=== PATIENT | male | born 1965 | race African-American/Black ===

== ENCOUNTER 2023-03-11 06:34 | Outpatient (REF) | payer OTHER, SELFPAY ==
[2023-03-11 06:41] LABS: MANUAL DIFF FLAG NO
[2023-03-11 06:54] LABS: Basophils Percent Auto 0.2 % (0-2); Eosinophils Absolute Auto 0.1 X10*3/uL (0.0-0.4); Eosinophils Percent Auto 1.5 % (0-4); Hematocrit 42.8 % (42.0-52.0); Hemoglobin 14.4 g/dl (14.0-18.0); Imm Gran Abs Auto 0.05 X10*3/uL (0.00-0.03); Imm Gran Pct Auto 0.6 % (0.0-0.4); Lymphocytes Percent Auto 12.6 % (20-40); Mean Corpuscular HGB Conc 33.6 g/dl (31.0-36.0); Mean Corpuscular Hemoglobin 30.3 pg (27.0-33.0); Mean Corpuscular Volume 89.9 fL (80.0-98.0); Mean Platelet Volume 10.4 fL (9.4-12.4); Monocytes Percent Auto 12.3 % (2-11); Neutrophils Absolute Auto 5.9 x10*3/uL (2.0-8.3); Neutrophils Percent Auto 72.8 % (45-73); Platelet Count 186 X10*3/uL (160-400); Red Blood Count 4.76 X10*6/uL (4.60-5.80); Red Cell Distribution Width 12.6 % (11.0-16.0); White Blood Count 8.1 X10*3/uL (4.8-10.8)
[2023-03-11 07:14] LABS: Alanine Aminotransferase 24 U/L (0-40); Albumin Level 3.9 g/dL (3.5-5.0); Alkaline Phosphatase 63 U/L (39-117); Anion Gap 12 (12-20); Aspartate Amino Transferase 23 U/L (5-37); Bilirubin Total 0.7 mg/dL (0.0-1.0); Blood Urea Nitrogen 7 mg/dL (9-16); Calcium 8.9 mg/dL (8.4-10.2); Carbon Dioxide 26 mmol/L (22-29); Chloride 104 mmol/L (96-108); Estimated Glomerular Filt Rate > 60; Glucose Random 90 mg/dL (60-115); Potassium 3.2 mmol/L (3.3-5.1); Sodium 139 mmol/L (135-145); Total Protein 7.1 g/dL (6.5-8.0)
[2023-03-11 20:17] LABS: Amphetamine Screen Urine Not Detected (Not Detect); Barbiturates, Urine Not Detected (Not Detect); Benzodiazepines Screen Urine Not Detected (Not Detect); Cannabinoid Screen Urine POSITIVE (Not Detect); Cocaine Screen Urine Not Detected (Not Detect); Fentanyl, urine Not Detected (Not Detect); Opiate Screen Urine Not Detected (Not Detect); Phencyclidine Screen Urine Not Detected (Not Detect)
== END 2023-03-11 06:35 | disposition home or self-care (01) ==
LOC: HO.MMNH1L 06:34
PROVIDERS: Visit Provider Family Medicine
DX: Z13.89 Encounter for screening for other disorder (principal); I10 Essential (primary) hypertension; K21.9 Gastro-esophageal reflux disease without esophagitis; E66.9 Obesity, unspecified
CPT/HCPCS: 36415; 80053; 80307; 85025

== ENCOUNTER 2023-03-15 06:26 | Outpatient (REF) | payer OTHER, SELFPAY ==
[2023-03-15 06:05] LABS: MANUAL DIFF FLAG NO
[2023-03-15 06:41] LABS: Basophils Percent Auto 0.3 % (0-2); Eosinophils Absolute Auto 0.1 X10*3/uL (0.0-0.4); Eosinophils Percent Auto 1.7 % (0-4); Hematocrit 41.6 % (42.0-52.0); Hemoglobin 14.1 g/dl (14.0-18.0); Imm Gran Abs Auto 0.02 X10*3/uL (0.00-0.03); Imm Gran Pct Auto 0.3 % (0.0-0.4); Lymphocytes Absolute Auto 1.3 X10*3/uL (1.2-4.9); Lymphocytes Percent Auto 19.6 % (20-40); Mean Corpuscular HGB Conc 33.9 g/dl (31.0-36.0); Mean Corpuscular Hemoglobin 31.2 pg (27.0-33.0); Mean Platelet Volume 10.1 fL (9.4-12.4); Monocytes Absolute Auto 0.8 X10*3/uL (0.1-1.2); Monocytes Percent Auto 12.6 % (2-11); Neutrophils Absolute Auto 4.2 x10*3/uL (2.0-8.3); Neutrophils Percent Auto 65.5 % (45-73); Platelet Count 189 X10*3/uL (160-400); Red Blood Count 4.52 X10*6/uL (4.60-5.80); Red Cell Distribution Width 12.7 % (11.0-16.0); White Blood Count 6.4 X10*3/uL (4.8-10.8)
[2023-03-15 06:48] LABS: Vancomycin Trough 9.6 mcg/mL (10.0-20.0)
[2023-03-15 07:02] LABS: Anion Gap 14 (12-20); Blood Urea Nitrogen 8 mg/dL (9-16); Calcium 8.7 mg/dL (8.4-10.2); Carbon Dioxide 27 mmol/L (22-29); Chloride 104 mmol/L (96-108); Estimated Glomerular Filt Rate > 60; Glucose Random 97 mg/dL (60-115); Potassium 3.4 mmol/L (3.3-5.1); Sodium 142 mmol/L (135-145)
== END 2023-03-15 06:27 | disposition home or self-care (01) ==
LOC: HO.MMNH1L 06:26
PROVIDERS: Visit Provider Family Medicine
DX: I10 Essential (primary) hypertension (principal); K21.9 Gastro-esophageal reflux disease without esophagitis; E66.9 Obesity, unspecified
CPT/HCPCS: 36415; 80048; 80202; 85025

== ENCOUNTER 2023-03-16 06:48 | Outpatient (REF) | payer OTHER, SELFPAY ==
[2023-03-16 19:57] LABS: Vancomycin Trough 8.2 mcg/mL (10.0-20.0)
== END 2023-03-16 06:49 | disposition home or self-care (01) ==
LOC: HO.MMNH1L 06:48
PROVIDERS: Visit Provider Family Medicine
DX: M86.9 Osteomyelitis, unspecified (principal); Z79.899 Other long term (current) drug therapy
CPT/HCPCS: 36415; 80202

== ENCOUNTER 2023-03-19 05:44 | Outpatient (REF) | payer OTHER, SELFPAY ==
[2023-03-19 06:20] LABS: Vancomycin Trough 8.1 mcg/mL (10.0-20.0)
== END 2023-03-19 05:45 | disposition home or self-care (01) ==
LOC: HO.MMNH1L 05:44
PROVIDERS: Visit Provider Family Medicine
DX: M86.9 Osteomyelitis, unspecified (principal); Z79.899 Other long term (current) drug therapy
CPT/HCPCS: 36415; 80202

== ENCOUNTER 2023-03-21 05:01 | Outpatient (REF) | payer OTHER, SELFPAY ==
[2023-03-21 05:34] LABS: Vancomycin Trough 8.4 mcg/mL (10.0-20.0)
== END 2023-03-21 05:02 | disposition home or self-care (01) ==
LOC: HO.MMNH1L 05:01
PROVIDERS: Visit Provider Family Medicine
DX: M86.9 Osteomyelitis, unspecified (principal); Z79.899 Other long term (current) drug therapy
CPT/HCPCS: 36415; 80202

== ENCOUNTER 2023-03-22 06:47 | Outpatient (REF) | payer OTHER, SELFPAY ==
[2023-03-22 06:08] LABS: MANUAL DIFF FLAG NO
[2023-03-22 07:27] LABS: Anion Gap 13 (12-20); Blood Urea Nitrogen 10 mg/dL (9-16); Calcium 8.5 mg/dL (8.4-10.2); Carbon Dioxide 28 mmol/L (22-29); Chloride 104 mmol/L (96-108); Estimated Glomerular Filt Rate > 60; Glucose Random 161 mg/dL (60-115); Potassium 3.5 mmol/L (3.3-5.1); Sodium 141 mmol/L (135-145)
[2023-03-22 07:28] LABS: Basophils Percent Auto 0.6 % (0-2); Eosinophils Absolute Auto 0.2 X10*3/uL (0.0-0.4); Eosinophils Percent Auto 3.5 % (0-4); Hematocrit 41.1 % (42.0-52.0); Hemoglobin 13.7 g/dl (14.0-18.0); Imm Gran Abs Auto 0.02 X10*3/uL (0.00-0.03); Imm Gran Pct Auto 0.4 % (0.0-0.4); Lymphocytes Absolute Auto 1.4 X10*3/uL (1.2-4.9); Lymphocytes Percent Auto 25.3 % (20-40); Mean Corpuscular HGB Conc 33.3 g/dl (31.0-36.0); Mean Corpuscular Hemoglobin 30.3 pg (27.0-33.0); Mean Corpuscular Volume 90.9 fL (80.0-98.0); Mean Platelet Volume 10.6 fL (9.4-12.4); Monocytes Absolute Auto 0.9 X10*3/uL (0.1-1.2); Monocytes Percent Auto 17.4 % (2-11); Neutrophils Absolute Auto 2.9 x10*3/uL (2.0-8.3); Neutrophils Percent Auto 52.8 % (45-73); Platelet Count 197 X10*3/uL (160-400); Red Blood Count 4.52 X10*6/uL (4.60-5.80); Red Cell Distribution Width 12.7 % (11.0-16.0); White Blood Count 5.4 X10*3/uL (4.8-10.8)
== END 2023-03-22 06:48 | disposition home or self-care (01) ==
LOC: HO.MMNH1L 06:47
PROVIDERS: Visit Provider Family Medicine
DX: I10 Essential (primary) hypertension (principal); K21.9 Gastro-esophageal reflux disease without esophagitis; E66.9 Obesity, unspecified
CPT/HCPCS: 36415; 80048; 85025

== ENCOUNTER 2023-03-23 06:43 | Outpatient (REF) | payer OTHER, SELFPAY ==
[2023-03-23 07:11] LABS: Vancomycin Trough 9.1 mcg/mL (10.0-20.0)
== END 2023-03-23 06:44 | disposition home or self-care (01) ==
LOC: HO.MMNH1L 06:43
PROVIDERS: Visit Provider Family Medicine
DX: M62.59 Muscle wasting and atrophy, not elsewhere classified, multiple sites (principal); M86.9 Osteomyelitis, unspecified; Z79.899 Other long term (current) drug therapy
CPT/HCPCS: 36415; 80202

== ENCOUNTER 2023-03-25 05:45 | Outpatient (REF) | payer OTHER, SELFPAY ==
[2023-03-25 06:08] LABS: Vancomycin Trough 4.9 mcg/mL (10.0-20.0)
== END 2023-03-25 05:46 | disposition home or self-care (01) ==
LOC: HO.MMNH1L 05:45
PROVIDERS: Visit Provider Family Medicine
DX: M86.9 Osteomyelitis, unspecified (principal); Z79.899 Other long term (current) drug therapy
CPT/HCPCS: 36415; 80202

== ENCOUNTER 2023-03-29 06:01 | Outpatient (REF) | payer OTHER, SELFPAY ==
[2023-03-29 05:45] LABS: MANUAL DIFF FLAG NO
[2023-03-29 06:47] LABS: Basophils Percent Auto 0.5 % (0-2); Eosinophils Absolute Auto 0.2 X10*3/uL (0.0-0.4); Eosinophils Percent Auto 2.7 % (0-4); Hematocrit 41.5 % (42.0-52.0); Hemoglobin 13.9 g/dl (14.0-18.0); Imm Gran Abs Auto 0.03 X10*3/uL (0.00-0.03); Imm Gran Pct Auto 0.5 % (0.0-0.4); Lymphocytes Absolute Auto 1.6 X10*3/uL (1.2-4.9); Lymphocytes Percent Auto 26.8 % (20-40); Mean Corpuscular HGB Conc 33.5 g/dl (31.0-36.0); Mean Corpuscular Hemoglobin 30.1 pg (27.0-33.0); Mean Corpuscular Volume 89.8 fL (80.0-98.0); Mean Platelet Volume 10.3 fL (9.4-12.4); Monocytes Absolute Auto 0.8 X10*3/uL (0.1-1.2); Neutrophils Absolute Auto 3.2 x10*3/uL (2.0-8.3); Neutrophils Percent Auto 55.5 % (45-73); Platelet Count 250 X10*3/uL (160-400); Red Blood Count 4.62 X10*6/uL (4.60-5.80); Red Cell Distribution Width 12.8 % (11.0-16.0); White Blood Count 5.9 X10*3/uL (4.8-10.8)
[2023-03-29 07:11] LABS: Vancomycin Trough 9.7 mcg/mL (10.0-20.0)
[2023-03-29 07:13] LABS: Anion Gap 15 (12-20); Blood Urea Nitrogen 9 mg/dL (9-16); Calcium 8.9 mg/dL (8.4-10.2); Carbon Dioxide 26 mmol/L (22-29); Chloride 101 mmol/L (96-108); Estimated Glomerular Filt Rate > 60; Glucose Random 99 mg/dL (60-115); Sodium 139 mmol/L (135-145)
== END 2023-03-29 06:02 | disposition home or self-care (01) ==
LOC: HO.MMNH1L 06:01
PROVIDERS: Visit Provider Family Medicine
DX: I10 Essential (primary) hypertension (principal); K21.9 Gastro-esophageal reflux disease without esophagitis; E66.9 Obesity, unspecified; Z79.899 Other long term (current) drug therapy
CPT/HCPCS: 36415; 80048; 80202; 85025

== ENCOUNTER 2023-03-31 05:23 | Outpatient (REF) | payer OTHER, SELFPAY ==
[2023-03-31 11:06] LABS: Appearance Urine Clear; Color Urine Yellow; Glucose Urine UA Negative (Negative); Leukocyte Esterase Urine Negative (Negative); Nitrite Urine Negative (Negative); PH 5.5 (5.0-9.0); Specific Gravity - Urine 1.025 (1.005-1.025); UMIC TRIGGER UACC YES; Urine Blood Trace (Negative); Urine Ketones Negative (Negative); Urine Protein Negative (Neg-Trace)
[2023-03-31 11:10] LABS: Bacteria Urine None Seen (None Seen); Hyaline Casts Urine 0-2 /LPF (0-2); RBC Urine 0-2 /HPF (0-2); Squamous Epithelial Cell Urine 0-2 /HPF (0-2); WBC Urine 0-5 /HPF (0-5)
[2023-03-31 11:12] LABS: Amphetamine Screen Urine Not Detected (Not Detect); Barbiturates, Urine Not Detected (Not Detect); Benzodiazepines Screen Urine Not Detected (Not Detect); Cannabinoid Screen Urine POSITIVE (Not Detect); Cocaine Screen Urine Not Detected (Not Detect); Fentanyl, urine Not Detected (Not Detect); Opiate Screen Urine Not Detected (Not Detect); Phencyclidine Screen Urine Not Detected (Not Detect)
== END 2023-03-31 05:24 | disposition home or self-care (01) ==
LOC: HO.MMNH1L 05:23
PROVIDERS: Visit Provider Family Medicine
DX: M86.9 Osteomyelitis, unspecified (principal); G89.4 Chronic pain syndrome; M62.59 Muscle wasting and atrophy, not elsewhere classified, multiple sites
CPT/HCPCS: 36415; 80307; 81001; 81003

== ENCOUNTER 2023-04-02 05:38 | Outpatient (REF) | payer OTHER, SELFPAY ==
[2023-04-02 06:07] LABS: Vancomycin Trough 7.6 mcg/mL (10.0-20.0)
== END 2023-04-02 05:39 | disposition home or self-care (01) ==
LOC: HO.MMNH1L 05:38
PROVIDERS: Visit Provider Family Medicine
DX: M86.9 Osteomyelitis, unspecified (principal); Z79.899 Other long term (current) drug therapy
CPT/HCPCS: 36415; 80202

== ENCOUNTER 2023-04-05 06:27 | Outpatient (REF) | payer OTHER, SELFPAY ==
[2023-04-05 05:53] LABS: MANUAL DIFF FLAG NO
[2023-04-05 06:44] LABS: Basophils Percent Auto 0.3 % (0-2); Eosinophils Absolute Auto 0.2 X10*3/uL (0.0-0.4); Eosinophils Percent Auto 2.5 % (0-4); Hematocrit 40.8 % (42.0-52.0); Hemoglobin 13.9 g/dl (14.0-18.0); Imm Gran Abs Auto 0.04 X10*3/uL (0.00-0.03); Imm Gran Pct Auto 0.6 % (0.0-0.4); Lymphocytes Absolute Auto 1.4 X10*3/uL (1.2-4.9); Lymphocytes Percent Auto 21.9 % (20-40); Mean Corpuscular HGB Conc 34.1 g/dl (31.0-36.0); Mean Corpuscular Hemoglobin 30.1 pg (27.0-33.0); Mean Corpuscular Volume 88.3 fL (80.0-98.0); Mean Platelet Volume 10.3 fL (9.4-12.4); Monocytes Percent Auto 15.7 % (2-11); Neutrophils Absolute Auto 3.7 x10*3/uL (2.0-8.3); Platelet Count 220 X10*3/uL (160-400); Red Blood Count 4.62 X10*6/uL (4.60-5.80); Red Cell Distribution Width 12.7 % (11.0-16.0); White Blood Count 6.3 X10*3/uL (4.8-10.8)
[2023-04-05 07:06] LABS: Anion Gap 12 (12-20); Blood Urea Nitrogen 11 mg/dL (9-16); Calcium 8.7 mg/dL (8.4-10.2); Carbon Dioxide 28 mmol/L (22-29); Chloride 103 mmol/L (96-108); Estimated Glomerular Filt Rate > 60; Glucose Random 117 mg/dL (60-115); Potassium 3.2 mmol/L (3.3-5.1); Sodium 140 mmol/L (135-145)
== END 2023-04-05 06:28 | disposition home or self-care (01) ==
LOC: HO.MMNH1L 06:27
PROVIDERS: Visit Provider Family Medicine
DX: I10 Essential (primary) hypertension (principal); K21.9 Gastro-esophageal reflux disease without esophagitis; E66.9 Obesity, unspecified; Z79.899 Other long term (current) drug therapy
CPT/HCPCS: 36415; 80048; 80202; 85025

== ENCOUNTER 2023-04-12 06:19 | Outpatient (REF) | payer OTHER, SELFPAY ==
[2023-04-12 05:54] LABS: MANUAL DIFF FLAG NO
[2023-04-12 06:10] LABS: Basophils Percent Auto 0.3 % (0-2); Eosinophils Absolute Auto 0.1 X10*3/uL (0.0-0.4); Eosinophils Percent Auto 2.3 % (0-4); Hematocrit 39.7 % (42.0-52.0); Hemoglobin 13.6 g/dl (14.0-18.0); Imm Gran Abs Auto 0.02 X10*3/uL (0.00-0.03); Imm Gran Pct Auto 0.3 % (0.0-0.4); Lymphocytes Absolute Auto 1.4 X10*3/uL (1.2-4.9); Lymphocytes Percent Auto 23.7 % (20-40); Mean Corpuscular HGB Conc 34.3 g/dl (31.0-36.0); Mean Corpuscular Hemoglobin 30.4 pg (27.0-33.0); Mean Corpuscular Volume 88.8 fL (80.0-98.0); Mean Platelet Volume 10.6 fL (9.4-12.4); Monocytes Absolute Auto 0.9 X10*3/uL (0.1-1.2); Monocytes Percent Auto 15.5 % (2-11); Neutrophils Absolute Auto 3.3 x10*3/uL (2.0-8.3); Neutrophils Percent Auto 57.9 % (45-73); Platelet Count 184 X10*3/uL (160-400); Red Blood Count 4.47 X10*6/uL (4.60-5.80); Red Cell Distribution Width 12.7 % (11.0-16.0); White Blood Count 5.7 X10*3/uL (4.8-10.8)
[2023-04-12 06:41] LABS: Anion Gap 10 (12-20); Blood Urea Nitrogen 9 mg/dL (9-16); Carbon Dioxide 31 mmol/L (22-29); Chloride 103 mmol/L (96-108); Estimated Glomerular Filt Rate > 60; Glucose Random 110 mg/dL (60-115); Potassium 3.4 mmol/L (3.3-5.1); Sodium 141 mmol/L (135-145)
[2023-04-12 06:45] LABS: Vancomycin Trough 8.5 mcg/mL (10.0-20.0)
== END 2023-04-12 06:20 | disposition home or self-care (01) ==
LOC: HO.MMNH1L 06:19
PROVIDERS: Visit Provider Family Medicine
DX: I10 Essential (primary) hypertension (principal); K21.9 Gastro-esophageal reflux disease without esophagitis; E66.9 Obesity, unspecified; Z79.899 Other long term (current) drug therapy
CPT/HCPCS: 36415; 80048; 80202; 85025

== ENCOUNTER 2023-04-13 05:56 | Outpatient (REF) | payer OTHER, SELFPAY ==
[2023-04-13 06:36] LABS: Alanine Aminotransferase 20 U/L (0-40); Albumin Level 4.2 g/dL (3.5-5.0); Alkaline Phosphatase 80 U/L (39-117); Anion Gap 13 (12-20); Aspartate Amino Transferase 18 U/L (5-37); Bilirubin Total 0.8 mg/dL (0.0-1.0); Blood Urea Nitrogen 9 mg/dL (9-16); Calcium 9.2 mg/dL (8.4-10.2); Carbon Dioxide 28 mmol/L (22-29); Chloride 104 mmol/L (96-108); Estimated Glomerular Filt Rate > 60; Glucose Random 101 mg/dL (60-115); Potassium 3.3 mmol/L (3.3-5.1); Sodium 142 mmol/L (135-145); Total Protein 7.6 g/dL (6.5-8.0)
[2023-04-13 07:22] LABS: Erythrocyte Sedimentation Rate 13 MM/HR (0-15)
== END 2023-04-13 05:57 | disposition home or self-care (01) ==
LOC: HO.MMNH1L 05:56
PROVIDERS: Visit Provider Family Medicine
DX: K21.9 Gastro-esophageal reflux disease without esophagitis (principal); G89.4 Chronic pain syndrome; M62.59 Muscle wasting and atrophy, not elsewhere classified, multiple sites
CPT/HCPCS: 36415; 80053; 85652; 86140

== ENCOUNTER 2023-09-17 12:59 | Emergency (ER) | payer OTHER, SELFPAY ==
--- NOTE | 2023-09-17 | ECG_ITS ---
Test Reason : CHEST PAIN Blood Pressure : / mmHG Vent. Rate : 091 BPM Atrial Rate : 091 BPM P-R Int : 166 ms QRS Dur : 072 ms QT Int : 368 ms P-R-T Axes : 040 -27 -03 degrees QTc Int : 452 ms Normal sinus rhythm Normal ECG When compared with ECG of 01-APR-2017 01:55, T wave inversion no longer evident in Lateral leads Referred By: Generic ED Physician Electronically Signed By:LAZ SHAFFER MD
--- NOTE | ~2023-09-17 | CT_ITS ---
EXAMINATION: CT HEAD WITHOUT CONTRAST CLINICAL INFORMATION: Headache COMPARISON: None available. TECHNIQUE: Contiguous axial imaging was performed from the skull base to vertex without intravenous administration of contrast. This CT examination was performed using dose optimization techniques as appropriate, variously including the following: *Automated exposure control *Adjustment of mA and/or kV according to patient size (this includes techniques or standardized protocols for targeted exams where dose is matched to indication/reason for exam; i.e. extremities or head) *Use of iterative reconstruction technique DLP: 1208.4 mGy-cm FINDINGS: The ventricles and sulci are normal in size and configuration. No acute hemorrhage, mass effect or shift is evident. Osullivan-white differentiation is maintained. In the posterior fossa, the brainstem, cerebellum and fourth ventricle image normally. The orbits and calvarium are intact. The paranasal sinuses and mastoid air cells are well pneumatized and clear. CT/CT head/brain wo IV con IMPRESSION: 1. Unremarkable noncontrast brain CT. No acute hemorrhage, mass effect or shift.
--- NOTE | ~2023-09-17 | CT_ITS ---
EXAMINATION: CT CERVICAL SPINE WITHOUT CONTRAST CLINICAL INFORMATION: Neck pain, trauma. COMPARISON: None available. TECHNIQUE: Multiple helical unenhanced images were acquired through the cervical spine. Multiplanar computer reformatted images were acquired from the dataset in the sagittal and coronal plane. This CT examination was performed using dose optimization techniques as appropriate, variously including the following: *Automated exposure control *Adjustment of mA and/or kV according to patient size (this includes techniques or standardized protocols for targeted exams where dose is matched to indication/reason for exam; i.e. extremities or head) *Use of iterative reconstruction technique DLP: 461.6 mGy-cm FINDINGS: CT examination of the cervical spine shows no prevertebral soft tissue swelling. Vertebral body height and alignment are maintained. No acute fracture or subluxation is evident. The odontoid process, cervicothoracic and cervical medullary junctions are normal. There are no bone lesions. Mild degenerative disc disease is evident at C5-C6 and C6-C7. Incidental note is made of bilateral, left greater than right stylohyoid ligament calcification, which can be a cause of neck pain or dysphagia. CT/CT cervical spine wo IV con IMPRESSION: 1. No acute cervical spine fracture or subluxation. Fleischner guidelines were followed.
--- NOTE | 2023-09-17 13:25 | ED.GENADULT ---
HPI - General Adult General Chief complaint: Chest Pain Stated complaint: CP and body aches Time Seen by Provider: 09/17/23 15:33 Source: patient Mode of arrival: ambulatory Limitations: no limitations History of Present Illness ED Provider: Dr. Reed Roe HPI narrative: 58-year-old male with a history of hypertension C diff colitis, diverticulitis, spinal infection 04/28/2023 completed 7 week course of antibiotics who presents emergency department for evaluation headache, neck pain, lower back pain, chest pain, palpitations, blurred vision and facial numbness. Patient states that in April of 2023 he had a infection his neck and lower back and was treated at [facility]. He does not know the etiology of this infection but states that he was at a nursing facility for 7 weeks sick bleed antibiotics. He states that since getting out of the rehab he has been having pain in his head, neck and lower back. He describes as a constant, sharp pain which is worse with movement and he now has to use a walker to support himself when he walks. He denied any numbness, weakness, loss of bowel or bladder control. He states that he was not had any fever or chills. Patient states that 2 weeks ago he saw his PCP and was told that he might have an infection at 1 of the IV sites and was supposed to get antibiotics and a muscle relaxant for his back but he never got these prescriptions. He states that the area of redness in his right arm has resolved without treatment. Patient states that he has been experiencing intermittent chest pain over the last 1-2 weeks. States he gets the chest pain daily. He states the pain has been constant for 2 days he describes it as a pressure-like sensation and he points to his anterior chest. He states that he will have intermittent palpitations which will last minutes. The pain does not radiate to his neck, jaw, arms or back. States that over the past week he has had constant nausea with vomiting. He has not been able to eat or drink for the last 2 days. He states he was having bloody diarrhea but this resolved 2 days prior. He states he did have a history of C diff colitis and is concerned that his C diff colitis is come back. Patient states he drinks 6-10 beers per day. He states that he snorts cocaine and last used yesterday. Related Data Previous Rx's ?Medication ?Instructions ?Recorded acetaminophen 500 mg tablet 1,000 mg (2 x 500 mg) PO Q6H PRN 09/17/23 (Tylenol Extra Strength) fever or pain #20 tabs ibuprofen 400 mg tablet 400 mg PO TID PRN fever or pain 09/17/23 #30 tabs morphine 15 mg immediate release 15 mg PO Q4-6H PRN pain #10 tabs 09/17/23 tablet Allergies Allergy/AdvReac Type Severity Reaction Status Date / Time No Known Allergies Allergy Verified 09/17/23 13:40 Review of Systems Review of Systems: Yes all other systems are reviewed and are negative [facility] Social History Social History (System 09/17/23 @ 13:34 by Keila Portillo) Alcohol intake: current Alcohol intake frequency: 3 or more drinks per day Alcohol type: beer Smoked in Last 30 Days: No Use of substances other than those prescribed or required for medical reasons: Yes Substance Use Type: Crack/Cocaine and Marijuana Substance Use Frequency: Chronic Longstanding Advance Directives: No Advance Directives Information Provided: No Do you have a plan to hurt others: No Plan Physical Exam ED Vital Signs: Vital Signs - 24 hr 09/17/23 13:39 09/17/23 16:22 09/17/23 18:22 Temperature 98.6 F 98.4 F 98.4 F Pulse Rate 94 85 80 Respiratory Rate 18 12 17 Blood Pressure 142/84 H 122/83 135/87 Pulse Oximetry 98 95 94 Oxygen Delivery Method Room Air Room Air Room Air BMI result Body Mass Index 39.9 Vital signs revealed an elevated blood pressure otherwise unremarkable Exam: General: Awake, alert in no distress Head: Normocephalic, atraumatic EENT: PERRL, Lids normal, sclera normal, conjunctiva normal, nose normal , ears normal, throat without erythema or exudates Neck: Supple, no adenopathy Lung: breath sounds symmetric, no wheezing, rales or rhonchi Chest: symmetric movement, nontender Heart: regular rate and rhythm, normal S1, S2 no murmurs or rubs Abdomen: soft, non-tender, nondistended, normal bowel sounds Back: no vertebral tenderness, no CVAT Extremities: no deformities, moves all extremities symmetrically Neuro: Awake, alert, oriented, normal speech, cranial nerves intact, moves all extremities symmetrically Psych: Pleasant, cooperative Course Course Course Narrative: This is an RME: Additional HPI, ROS, PE not included below will be deferred to primary provider. RME assessment and note performed by: Ana Gonzalez PA-C This is a [id number]-male who presenting to the ER with a complaint of diarrhea, decreased appetite, body aches, chest pain, left arm pain, and headaches 2 weeks, worsening everyday. Reporting that in Jan 2023 he was admitted to [facility] for septic arthritis. He was sent to a rehab and was discharged in May. He states that about 1-2 weeks ago he was sent back to [facility] as he was afraid his septic arthritis in his neck was returning. He was discharged home, he is not on antibiotics. He states that he has been incontinent of urine for the last few months has been worse. Also having difficulty with ambulation. I was called to patient's assistance in the waiting room as patient was found on the ground. He was responsive. When asked about what caused him to fall, he states that he has had pain in his legs and diffusely throughout his body. When asked about what caused him to fall, he states that he is unsure. Plan: Labs, EKG, cxr Medications Administered Discontinued Medications Generic Name Dose Route Start Last Admin Trade Name Freq PRN Reason Stop Dose Admin Sodium Chloride 1,000 mls @ 999 mls/hr 09/17/23 16:00 09/17/23 19:45 Ns IV 09/17/23 17:00 Infused .Q1H1M STA Infusion Ketorolac Tromethamine 15 mg 09/17/23 16:00 09/17/23 16:45 Ketorolac Tromethamine 15 Mg/Ml Vial IVPUSH 09/17/23 16:01 15 mg ONCE STA Administration Ondansetron HCl 4 mg 09/17/23 16:00 09/17/23 16:45 Ondansetron Hcl 4 Mg/2 Ml Vial IVPUSH 09/17/23 16:01 4 mg ONCE ONE Administration Medical Decision Making Medical Decision Making [facility] Narrative: 58-year-old male with a history of hypertension C diff colitis, diverticulitis, spinal infection 04/28/2023 completed 7 week course of antibiotics who presents emergency department for evaluation headache, neck pain, lower back pain, chest pain, palpitations, blurred vision and facial numbness. Patient's physical examination was unremarkable Differential diagnosis: ?Includes but is not limited to myocardial infarction, myocardial ischemia, musculoskeletal pain, costochondritis, stroke, closed head injury, intracranial bleed, paraspinal infection Following evaluation was ordered: CBC, BMP, LFTs, troponin, lipase, urine drug screen, PT/INR, PTT, CRP, CT scan of the head and cervical spine without IV contrast, EKG Patient was initially treated with the following: Morphine 15 mg orally, ibuprofen 400 mg orally Course: My interpretation patient's laboratory evaluation is as follows: White blood cell count was normal. Platelet count low 154,000. AST and ALT elevated 64 and 57. High sensitive troponin was elevated 83.5 per hour troponin was 75 which is reassuring suggested the patient did not have myocardial injury is the cause of his chest pain. Patient's CK was high at 655 and this is probably related to his cocaine use. Patient's CRP was normal at 0.11 which is reassuring as well. Patient did have a fall in the waiting room and CT scan of the head and cervical spine was unremarkable. At this time I do not have a clear etiology for the patient's pain, he was prescribed ibuprofen and Tylenol and for pain not relieved by these medications he was prescribed morphine 15 mg every 6 hours as needed for pain. He was given printed and verbal instructions and discharged home. Admission/Observation Consideration of admission/observation: Escalation of care including admission/observation considered Lab Data MDM Lab Attestation statement: I reviewed the patient's lab results. 09/17/23 15:00 09/17/23 15:00 Labs: Lab Results 09/17/23 09/17/23 09/17/23 Range/Units 15:00 16:14 16:58 WBC 5.3 (4.8-10.8) X10*3/uL RBC 5.03 (4.60-5.80) X10*6/uL Hgb 15.6 (14.0-18.0) g/dl Hct 44.5 (42.0-52.0) % MCV 88.5 (80.0-98.0) fL MCH 31.0 (27.0-33.0) pg MCHC 35.1 (31.0-36.0) g/dl RDW 13.4 (11.0-16.0) % Plt Count 154 L (160-400) X10*3/uL MPV 9.6 (9.4-12.4) fL Immature Gran % (Auto) 0.4 (0.0-0.4) % Neut % (Auto) 60.9 (45-73) % Lymph % (Auto) 25.0 (20-40) % [place] % (Auto) 12.7 H (2-11) % Eos % (Auto) 0.6 (0-4) % Baso % (Auto) 0.4 (0-2) % Lymph # (Auto) 1.3 (1.2-4.9) X10*3/uL [place] # (Auto) 0.7 (0.1-1.2) X10*3/uL Eos # (Auto) 0.0 (0.0-0.4) X10*3/uL Baso # (Auto) 0.0 (0.0-0.2) X10*3/uL Abs Immat Gran (auto) 0.02 (0.00-0.03) X10*3/uL Absolute Neuts (auto) 3.2 (2.0-8.3) x10*3/uL Absolute Nucleated RBC 0.000 (0.0-0.012) X10*3/uL Nucleated RBC % (auto) 0.0 (0.0-0.2) /100WBC PT 12.4 (11.1-13.3) SEC INR 1.0 (0.9-1.1) Sodium 143 (135-145) mmol/L Potassium 3.4 (3.3-5.1) mmol/L Chloride 104 (96-108) mmol/L Carbon Dioxide 26 (22-29) mmol/L Anion Gap 16 (12-20) BUN 6 L (9-16) mg/dL Creatinine 0.71 (0.5-1.4) mg/dL Estim Creat Clear Calc 137.8 Estimated GFR > 60 Random Glucose 81 (60-115) mg/dL Calcium 8.9 (8.4-10.2) mg/dL Magnesium 2.3 (1.6-2.6) mg/dL Total Bilirubin 1.0 (0.0-1.0) mg/dL Direct Bilirubin 0.3 (0.0-0.5) mg/dL AST 68 H (5-37) U/L ALT 51 H (0-40) U/L Alkaline Phosphatase 74 (39-117) U/L Total Creatine Kinase 655 H (38-174) U/L Troponin I High Sens 83.5 H (<3.5-35.0) ng/L C-Reactive Protein 0.11 (< or = 0.50) mg/dL Total Protein 7.7 (6.5-8.0) g/dL Albumin 4.3 (3.5-5.0) g/dL Lipase 27 (8-78) U/L Urine Color Yellow Urine Appearance Clear Urine pH 5.5 (5.0-9.0) Ur Specific [place] 1.015 (1.005-1.025) Urine Protein Trace (Neg-Trace) mg/dL Urine Glucose (UA) Negative (Negative) mg/dL Urine Ketones 40 (Negative) mg/dL Urine Blood Small (1+) H (Negative) Urine Nitrite Negative (Negative) Ur Leukocyte Esterase Negative (Negative) Urine RBC 0-2 (0-2) /HPF Urine WBC 0-5 (0-5) /HPF Ur Squamous Epith Cells 0-2 (0-2) /HPF Urine Bacteria None Seen (None Seen) Hyaline Casts 0-2 (0-2) /LPF Urine Opiates Screen Not Detected (Not Detect) Ur Buprenorphine Scrn Not Detected (Not Detect) ng/mL Ur Oxycodone Screen Not Detected (Not Detect) ng/mL Urine Methadone Screen Not Detected (Not Detect) ng/mL Urine Fentanyl Screen Not Detected (Not Detect) Ur Barbiturates Screen Not Detected (Not Detect) Ur Phencyclidine Scrn Not Detected (Not Detect) Ur Amphetamines Screen Not Detected (Not Detect) U Benzodiazepines Scrn Not Detected (Not Detect) Urine Cocaine Screen POSITIVE H (Not Detect) U Marijuana (THC) Screen POSITIVE H (Not Detect) C. difficile Tox B Gene NEGATIVE (Negative) Influenza Type A (PCR) NEGATIVE (Negative) Influenza Type B (PCR) NEGATIVE (Negative) RSV RNA Qual (PCR) NEGATIVE (Negative) SARS-CoV-2 RNA (RT-PCR) NEGATIVE (Negative) 09/17/23 Range/Units 18:26 WBC (4.8-10.8) X10*3/uL RBC (4.60-5.80) X10*6/uL Hgb (14.0-18.0) g/dl Hct (42.0-52.0) % MCV (80.0-98.0) fL MCH (27.0-33.0) pg MCHC (31.0-36.0) g/dl RDW (11.0-16.0) % Plt Count (160-400) X10*3/uL MPV (9.4-12.4) fL Immature Gran % (Auto) (0.0-0.4) % Neut % (Auto) (45-73) % Lymph % (Auto) (20-40) % [place] % (Auto) (2-11) % Eos % (Auto) (0-4) % Baso % (Auto) (0-2) % Lymph # (Auto) (1.2-4.9) X10*3/uL [place] # (Auto) (0.1-1.2) X10*3/uL Eos # (Auto) (0.0-0.4) X10*3/uL Baso # (Auto) (0.0-0.2) X10*3/uL Abs Immat Gran (auto) (0.00-0.03) X10*3/uL Absolute Neuts (auto) (2.0-8.3) x10*3/uL Absolute Nucleated RBC (0.0-0.012) X10*3/uL Nucleated RBC % (auto) (0.0-0.2) /100WBC PT (11.1-13.3) SEC INR (0.9-1.1) Sodium (135-145) mmol/L Potassium (3.3-5.1) mmol/L Chloride (96-108) mmol/L Carbon Dioxide (22-29) mmol/L Anion Gap (12-20) BUN (9-16) mg/dL Creatinine (0.5-1.4) mg/dL Estim Creat Clear Calc Estimated GFR Random Glucose (60-115) mg/dL Calcium (8.4-10.2) mg/dL Magnesium (1.6-2.6) mg/dL Total Bilirubin (0.0-1.0) mg/dL Direct Bilirubin (0.0-0.5) mg/dL AST (5-37) U/L ALT (0-40) U/L Alkaline Phosphatase (39-117) U/L Total Creatine Kinase (38-174) U/L Troponin I High Sens 75.5 H (<3.5-35.0) ng/L C-Reactive Protein (< or = 0.50) mg/dL Total Protein (6.5-8.0) g/dL Albumin (3.5-5.0) g/dL Lipase (8-78) U/L Urine Color Urine Appearance Urine pH (5.0-9.0) Ur Specific [place] (1.005-1.025) Urine Protein (Neg-Trace) mg/dL Urine Glucose (UA) (Negative) mg/dL Urine Ketones (Negative) mg/dL Urine Blood (Negative) Urine Nitrite (Negative) Ur Leukocyte Esterase (Negative) Urine RBC (0-2) /HPF Urine WBC (0-5) /HPF Ur Squamous Epith Cells (0-2) /HPF Urine Bacteria (None Seen) Hyaline Casts (0-2) /LPF Urine Opiates Screen (Not Detect) Ur Buprenorphine Scrn (Not Detect) ng/mL Ur Oxycodone Screen (Not Detect) ng/mL Urine Methadone Screen (Not Detect) ng/mL Urine Fentanyl Screen (Not Detect) Ur Barbiturates Screen (Not Detect) Ur Phencyclidine Scrn (Not Detect) Ur Amphetamines Screen (Not Detect) U Benzodiazepines Scrn (Not Detect) Urine Cocaine Screen (Not Detect) U Marijuana (THC) Screen (Not Detect) C. difficile Tox B Gene (Negative) Influenza Type A (PCR) (Negative) Influenza Type B (PCR) (Negative) RSV RNA Qual (PCR) (Negative) SARS-CoV-2 RNA (RT-PCR) (Negative) Independent Interpretation I performed an independent interpretation of an: EKG Interpretation: My independent interpretation patient's 12 EKG done at 13:02 hours is as follows: Normal sinus rhythm with a rate of 91, normal VA interval, QRS duration and QTC duration, no ST segment elevation, no ST segment depression, no significant T-wave abnormalities, no PACs, no PVCs Radiology Impression Discussion of test interpretation with radiology: I have reviewed the radiologist's reading. Radiologist Impression: CT head/brain wo IV con IMPRESSION: 1. Unremarkable noncontrast brain CT. No acute hemorrhage, mass effect or shift. Dictated By: Ernie Moss MD CT cervical spine wo IV con IMPRESSION: 1. No acute cervical spine fracture or subluxation. Fleischner guidelines were followed. Dictated By: Ernie Moss MD External Record Review External record reviewed: Other ([place] prescription monitoring program-09/13/2023 patient received 15 oxycodone but this is not helping his pain) Prescription Management I considered prescription management with: Pain Medication Discharge Plan Discharge Clinical Impression: Chest pain, Acute neck pain, Back pain Patient Disposition: Home, Self-Care Instructions: Chest Pain (ED) Additional Instructions: Your CT scan of your head and neck was unremarkable. Your blood work was unremarkable and does not explain your symptoms, at this time I do not think that you have an infection that is causing your neck and back pain. Take ibuprofen 200 mg pills, 2 pills every 6 hours as needed for pain. Take Tylenol (acetaminophen) 2 pills every 6 hours as needed for pain. For pain not relieved by ibuprofen or Tylenol take morphine 15 mg pills, 1 pill every 6 hours as needed for pain. This medication will make you sleepy, do not drive or work while taking this medication. Morphine is a narcotic medication and can be addicting. If you are concerned about addiction you can ask the pharmacist for less pills or do not get this prescription filled. Follow-up with your doctor in 2 days. Please return to the emergency department if your symptoms get worse or if you develop any symptoms that are concerning to you. Prescriptions: New ibuprofen 400 mg tablet 400 mg PO TID PRN (Reason: fever or pain) Qty: 30 0RF morphine 15 mg tablet 15 mg PO Q4-6H PRN (Reason: pain) Qty: 10 0RF Rx Instructions: The patient may ask for partial fill; Partial Fill upon patient request. acetaminophen [Tylenol Extra Strength] 500 mg tablet 1,000 mg PO Q6H PRN (Reason: fever or pain) Qty: 20 0RF Print Language: Urdu
[2023-09-17 13:39] VITALS: BP 142/84; PULSE 94; RESP 18; TEMP 37; O2SAT 98; BMI 39.9
[2023-09-17 15:05] LABS: MANUAL DIFF FLAG NO
[2023-09-17 15:07] LABS: Basophils Percent Auto 0.4 % (0-2); Eosinophils Percent Auto 0.6 % (0-4); Hematocrit 44.5 % (42.0-52.0); Hemoglobin 15.6 g/dl (14.0-18.0); Imm Gran Abs Auto 0.02 X10*3/uL (0.00-0.03); Imm Gran Pct Auto 0.4 % (0.0-0.4); Lymphocytes Absolute Auto 1.3 X10*3/uL (1.2-4.9); Mean Corpuscular HGB Conc 35.1 g/dl (31.0-36.0); Mean Corpuscular Volume 88.5 fL (80.0-98.0); Mean Platelet Volume 9.6 fL (9.4-12.4); Monocytes Absolute Auto 0.7 X10*3/uL (0.1-1.2); Monocytes Percent Auto 12.7 % (2-11); Neutrophils Absolute Auto 3.2 x10*3/uL (2.0-8.3); Neutrophils Percent Auto 60.9 % (45-73); Platelet Count 154 X10*3/uL (160-400); Red Blood Count 5.03 X10*6/uL (4.60-5.80); Red Cell Distribution Width 13.4 % (11.0-16.0); White Blood Count 5.3 X10*3/uL (4.8-10.8)
[2023-09-17 15:19] LABS: Prothrombin Time 12.4 SEC (11.1-13.3)
[2023-09-17 15:29] LABS: Alanine Aminotransferase 51 U/L (0-40); Albumin Level 4.3 g/dL (3.5-5.0); Alkaline Phosphatase 74 U/L (39-117); Anion Gap 16 (12-20); Aspartate Amino Transferase 68 U/L (5-37); Bilirubin Direct 0.3 mg/dL (0.0-0.5); Blood Urea Nitrogen 6 mg/dL (9-16); Calcium 8.9 mg/dL (8.4-10.2); Carbon Dioxide 26 mmol/L (22-29); Chloride 104 mmol/L (96-108); Creatinine Clr Calc Pharmacy 137.8; Estimated Glomerular Filt Rate > 60; Glucose Random 81 mg/dL (60-115); Lipase 27 U/L (8-78); Magnesium 2.3 mg/dL (1.6-2.6); Potassium 3.4 mmol/L (3.3-5.1); Sodium 143 mmol/L (135-145); Total Protein 7.7 g/dL (6.5-8.0)
[2023-09-17 15:36] LABS: Troponin-I High Sensitivity 83.5 ng/L (<3.5-35.0)
[2023-09-17 15:45] LABS: Influenza A PCR NEGATIVE (Negative); Influenza B PCR NEGATIVE (Negative); Resp Syncy Virus RNA Qual PCR NEGATIVE (Negative); SARS COV2 PCR INHOUSE NEGATIVE (Negative)
[2023-09-17 16:19] LABS: C Reactive Protein 0.11 mg/dL (< or = 0.50)
[2023-09-17 16:22] VITALS: BP 122/83; PULSE 85; RESP 12; TEMP 36.9; O2SAT 95
[2023-09-17 16:25] LABS: Appearance Urine Clear; Color Urine Yellow; Glucose Urine UA Negative (Negative); Leukocyte Esterase Urine Negative (Negative); Nitrite Urine Negative (Negative); PH 5.5 (5.0-9.0); Specific Gravity - Urine 1.015 (1.005-1.025); UMIC TRIGGER UACC YES; Urine Blood Small (1+) (Negative); Urine Ketones 40 mg/dL (Negative); Urine Protein Trace mg/dL (Neg-Trace)
[2023-09-17 16:37] LABS: Bacteria Urine None Seen (None Seen); Hyaline Casts Urine 0-2 /LPF (0-2); RBC Urine 0-2 /HPF (0-2); Squamous Epithelial Cell Urine 0-2 /HPF (0-2); WBC Urine 0-5 /HPF (0-5)
[2023-09-17] MEDS: ondansetron HCL 4 MG/2 ML VIAL IVPUSH (16:45)
[2023-09-17] MEDS: Ketorolac Tromethamine 15 MG/ML VIAL IVPUSH (16:45)
[2023-09-17] MEDS: 0.9 % Sodium Chloride 1,000 ML 999 ML IV (16:45)
[2023-09-17 16:46] LABS: Amphetamine Screen Urine Not Detected (Not Detect); Barbiturates, Urine Not Detected (Not Detect); Benzodiazepines Screen Urine Not Detected (Not Detect); Buprenorphine Scr Not Detected (Not Detect); Cannabinoid Screen Urine POSITIVE (Not Detect); Cocaine Screen Urine POSITIVE (Not Detect); Fentanyl, urine Not Detected (Not Detect); Methadone Screen, Urine Not Detected (Not Detect); Opiate Screen Urine Not Detected (Not Detect); Oxycodone Screen Urine Not Detected (Not Detect); Phencyclidine Screen Urine Not Detected (Not Detect)
[2023-09-17 18:22] VITALS: BP 135/87; PULSE 80; RESP 17; TEMP 36.9; O2SAT 94
[2023-09-17 18:28] LABS: CDiff Gene PCR NEGATIVE (Negative)
[2023-09-17 18:54] LABS: Troponin-I High Sensitivity 75.5 ng/L (<3.5-35.0)
[2023-09-17 19:41] VITALS: PULSE 86
--- NOTE | 2023-09-17 19:55 | PC.NURSE ---
Assumed care of pt. Pt woke from sleep for assessment. pt endorsing 10/10 generalized pain x multiple weeks. Notified provider for additional orders.
[2023-09-17] MEDS: Ibuprofen 400 MG TABLET PO (20:52)
[2023-09-17] MEDS: Morphine Sulfate Immed Release 15 MG TABLET PO (20:52)
[2023-09-17 21:46] VITALS: BP 135/87; PULSE 80; RESP 17; TEMP 36.9; O2SAT 94
== END 2023-09-17 21:47 | disposition home or self-care (01) ==
PROVIDERS: Physician Assistant Medical; Emergency Provider Emergency Medicine Emergency Medical Services; PCP Internal Medicine
DX: R07.9 Chest pain, unspecified (principal); M54.2 Cervicalgia; M54.50 Low back pain, unspecified; I10 Essential (primary) hypertension; Z03.818 Encounter for observation for suspected exposure to other biological agents ruled out; Z79.2 Long term (current) use of antibiotics
CPT/HCPCS: 0241U; 36415; 70450; 72125; 80048; 80076; 80307; 81001; 82550; 83690; 83735; 84484; 85025; 85610; 86140; 87493; 93005; 96361; 96374; 96375; 99285; J1885; J2405

== ENCOUNTER → 2023-09-17 13:02 | Outpatient (BNV) | payer OTHER, SELFPAY | PROVIDERS: Emergency Provider Emergency Medicine Emergency Medical Services; PCP Internal Medicine; Visit Provider Internal Medicine Cardiovascular Disease | DX: R94.31 Abnormal electrocardiogram [ECG] [EKG] (principal) | CPT/HCPCS: 93010 ==

== ENCOUNTER 2023-12-17 15:58 | Outpatient (REF) | payer OTHER, SELFPAY ==
[2023-12-17 18:33] LABS: Anion Gap 14 (12-20); Blood Urea Nitrogen 12 mg/dL (9-16); Calcium 9.3 mg/dL (8.4-10.2); Carbon Dioxide 24 mmol/L (22-29); Chloride 106 mmol/L (96-108); Estimated Glomerular Filt Rate > 60; Glucose Fasting 112 mg/dL (60-99); Magnesium 2.3 mg/dL (1.6-2.6); Potassium 3.1 mmol/L (3.3-5.1); Sodium 141 mmol/L (135-145)
[2023-12-17 19:06] LABS: Folate 9.5 ng/mL (> or = 4.0); Vitamin B12 272 pg/mL (200-900)
[2023-12-18 03:58] LABS: HIV AB/AG Nonreactive (Nonreactive); HIV Num 1 0.05 S/CO (0.00-0.99); ~HepC Num1 1.31 S/CO (0.00-0.79); ~Hepatitis C Antibody Reactive (Nonreactive)
[2023-12-21 15:33] LABS: HCV Log PCR <1.18 NOT DETECTED Log IU/mL (NOT DETECTED); HepC Viral Load <15 NOT DETECTED IU/mL (NOT DETECTED)
== END 2023-12-17 15:59 | disposition home or self-care (01) ==
LOC: HO.CHCLDS 15:58
PROVIDERS: Visit Provider Internal Medicine
DX: R10.9 Unspecified abdominal pain (principal); R20.2 Paresthesia of skin; R31.29 Other microscopic hematuria
CPT/HCPCS: 36415; 80048; 82607; 82746; 83735; 84425; 86803; 87086; 87389; 87522

== ENCOUNTER 2023-12-21 08:04 | Outpatient (REF) | payer OTHER, SELFPAY ==
[2023-12-21 14:40] LABS: Anion Gap 16 (12-20); Blood Urea Nitrogen 9 mg/dL (9-16); Carbon Dioxide 25 mmol/L (22-29); Chloride 105 mmol/L (96-108); Estimated Glomerular Filt Rate > 60; Glucose Random 109 mg/dL (60-115); Potassium 3.3 mmol/L (3.3-5.1); Sodium 143 mmol/L (135-145)
[2023-12-27 06:28] LABS: Vitamin B1 7 nmol/L (8-30)
== END 2023-12-21 08:05 | disposition home or self-care (01) ==
LOC: HO.CHCLDS 08:04
PROVIDERS: Visit Provider Internal Medicine
DX: E87.6 Hypokalemia (principal); M54.12 Radiculopathy, cervical region; R20.2 Paresthesia of skin
CPT/HCPCS: 36415; 80048; 84425

== ENCOUNTER 2024-07-26 10:19 | Inpatient (IN) | payer OTHER, SELFPAY ==
--- NOTE | ~2024-07-26 | CT_ITS ---
EXAMINATION: CT ABDOMEN AND PELVIS WITHOUT CONTRAST CLINICAL INFORMATION: Diffuse abdominal pain. COMPARISON: 03/18/2015 TECHNIQUE: Multidetector volumetric imaging was performed from the superior aspect of the liver through the pubic symphysis. Sagittal and coronal reformatted images were obtained on the technologist's workstation. This CT examination was performed using dose optimization techniques as appropriate, variously including the following: *Automated exposure control *Adjustment of mA and/or kV according to patient size (this includes techniques or standardized protocols for targeted exams where dose is matched to indication/reason for exam; i.e. extremities or head) *Use of iterative reconstruction technique FINDINGS: LUNG BASES: The visualized lung bases are unremarkable. LIVER, GALLBLADDER, AND BILIARY TREE: The unenhanced liver is normal in size, shape, with diffuse decreased attenuation consistent with fatty infiltration. There is focal fatty sparing abutting the gallbladder fossa. No focal hepatic lesion or biliary ductal dilatation is present. The gallbladder is unremarkable with no evidence of radiopaque gallstones, gallbladder wall thickening, or obvious pericholecystic inflammatory changes. PANCREAS: Unremarkable. SPLEEN: Unremarkable. ADRENAL GLANDS: Low-density adenoma on the left measuring 4.4 x 3.8 cm. The right gland is normal. KIDNEYS AND URETERS: The kidneys are normal in size, shape, and attenuation. No hydronephrosis, hydroureter, or calculi seen. No perinephric stranding. BLADDER: Unremarkable. GASTROINTESTINAL TRACT: Wall thickening of the hepatic flexure, transverse colon, splenic flexure and descending colon consistent with segmental colitis. Mild associated hyperemia. Rectosigmoid anastomotic suture line present, unremarkable in appearance. Ileocolonic anastomosis in the right upper quadrant, unremarkable in appearance. Appendix is surgically absent. Small bowel is normal in caliber and course. Stomach and duodenum appear normal. ABDOMINAL WALL: There is been prior ventral hernia repair with numerous surgical anchors present. There are fatty inguinal canals without definite hernias. LYMPH NODES: No abnormal lymphadenopathy.. VASCULAR: Mild atheromatous calcification of the aorta and iliac arteries. No aneurysm. PELVIC VISCERA: The prostate and seminal vesicles are unremarkable. OSSEOUS STRUCTURES: No suspicious lytic or blastic bone lesions. Mild degenerative changes of the bilateral hip joints and spine. CT/CT abdomen pelvis wo IV con IMPRESSION: 1. Wall thickening of the hepatic flexure, transverse colon, splenic flexure and descending colon consistent with segmental colitis. The rectum does not appear involved. 2. Right upper quadrant ileocolonic anastomosis, and rectosigmoid anastomosis. Both appear unremarkable. 3. Diffuse fatty infiltration of the liver. 4. Left lipid rich adrenal adenoma measuring 4.4 x 3.8 cm. 5. Prior ventral hernia repair. Electronically signed by: Radames Constantino MD 07/27/2024 03:41 PM EDT
[2024-07-26 10:30] VITALS: BP 153/102; BP 159/100; PULSE 80; PULSE 81; RESP 18; TEMP 36.6; O2SAT 95; O2SAT 97; BMI 36.0
[2024-07-26 10:53] VITALS: BP 159/100; PULSE 80; RESP 18; TEMP 36.6; O2SAT 95
[2024-07-26 11:07] LABS: MANUAL DIFF FLAG NO
--- NOTE | 2024-07-26 11:08 | MHC.EDTECH ---
Patient was provided a urine cup at time of change booth attendant. Patient urinated directly in to the toilet. Patient reminded that we did need a urine sample. Patient apologetic, stating forgot .
[2024-07-26 11:10] LABS: Basophils Percent Auto 0.2 % (0-2); Eosinophils Percent Auto 0.2 % (0-4); Hemoglobin 15.8 g/dl (14.0-18.0); Imm Gran Abs Auto 0.01 X10*3/uL (0.00-0.03); Imm Gran Pct Auto 0.2 % (0.0-0.4); Lymphocytes Absolute Auto 1.4 X10*3/uL (1.2-4.9); Lymphocytes Percent Auto 25.2 % (20-40); Mean Corpuscular HGB Conc 35.1 g/dl (31.0-36.0); Mean Corpuscular Hemoglobin 31.4 pg (27.0-33.0); Mean Corpuscular Volume 89.5 fL (80.0-98.0); Mean Platelet Volume 9.2 fL (9.4-12.4); Monocytes Absolute Auto 0.6 X10*3/uL (0.1-1.2); Monocytes Percent Auto 10.9 % (2-11); Neutrophils Absolute Auto 3.5 x10*3/uL (2.0-8.3); Neutrophils Percent Auto 63.3 % (45-73); Platelet Count 173 X10*3/uL (160-400); Red Blood Count 5.03 X10*6/uL (4.60-5.80); White Blood Count 5.6 X10*3/uL (4.8-10.8)
--- NOTE | 2024-07-26 11:12 | MHC.EDTECH ---
Patient visiting with Pastor Grayson.
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
[2024-07-26 11:25] LABS: Alanine Aminotransferase 41 U/L (0-40); Albumin Level 4.5 g/dL (3.5-5.0); Alkaline Phosphatase 75 U/L (39-117); Anion Gap 17 (12-20); Aspartate Amino Transferase 70 U/L (5-37); Bilirubin Total 0.9 mg/dL (0.0-1.0); Blood Urea Nitrogen 5 mg/dL (9-16); Calcium 8.6 mg/dL (8.4-10.2); Carbon Dioxide 25 mmol/L (22-29); Chloride 107 mmol/L (96-108); Estimated Glomerular Filt Rate > 60; Ethanol 333 mg/dL; Glucose Random 97 mg/dL (60-115); Potassium 3.5 mmol/L (3.3-5.1); Sodium 145 mmol/L (135-145); Total Protein 8.2 g/dL (6.5-8.0)
[2024-07-26 11:35] LABS: Acetaminophen LAB < 3 mcg/mL (<30); Salicylate < 5.0 mg/dL (15-30)
[2024-07-26 11:53] LABS: COVID-19 Test Negative (Negative); IDNOW Serial# 55D5AD1C
--- NOTE | 2024-07-26 13:18 | ED.PSYCH ---
HPI - Psych General Chief Complaint: Psychiatric Symptoms Stated Complaint: SI STATEMENTS,ETOH USE, FROM [facility] PER EMS Time Seen by Provider: 07/26/24 10:25 Source: patient and RN notes reviewed Mode of arrival: ambulatory Limitations: no limitations History of Present Illness ED Provider: Ana Gilbert PA-C HPI Narrative: This is a 59-year-old male who presents emergency department with concerns of suicidal or homicidal ideation. Patient states that he has had increased stress. Patient states that he had thoughts of killing his cousin. He states that if his mom was at home he would have killed his cousin as well as himself. He states that he does not have a home, he is living out of his car. Patient states that he drinks daily, states that he drinks 4 beers in the morning and 4 beers at night. Denies history of alcohol withdrawal. Also endorsing drug use, states that he used crack yesterday. He denies any chest pain, shortness of breath, abdominal pain, nausea, vomiting or diarrhea. No other complaints or concerns at this time. MD complaint: suicidal ideation Duration: constant Relieving factors: none Exacerbating factors: none Context: recent alcohol abuse and recent drug abuse Associated psychiatric symptoms: suicidal ideation and homicidal ideation Treatments prior to arrival: none If self harm: admits thoughts of self harm Related Data Home Medications ?Medication ?Instructions ?Recorded ?Confirmed amlodipine 10 mg tablet 10 mg PO DAILY 07/26/24 07/28/24 Previous Rx's ?Medication ?Instructions ?Recorded hydroxyzine HCl 25 mg tablet 25 mg PO Q6H PRN mild anxiety #0 07/28/24 tabs olanzapine 10 mg tablet 10 mg PO BEDTIME #0 tabs 07/28/24 olanzapine 5 mg tablet 5 mg PO Q4H PRN agitation #0 tabs 07/28/24 omeprazole 40 mg capsule,delayed 40 mg PO DAILY@0630 #0 caps 07/28/24 release ondansetron 4 mg disintegrating 4 mg translingual Q8H PRN Nausea 07/28/24 tablet And Vomiting #0 tabs thiamine mononitrate (vit B1) 100 100 mg PO DAILY #0 tabs 07/28/24 mg tablet trazodone 50 mg tablet 50 mg PO BEDTIME MRX1 PRN Insomnia 07/28/24 #0 tabs amoxicillin 875 mg-potassium 1 tab PO BID #10 tabs 07/30/24 clavulanate 125 mg tablet Allergies Allergy/AdvReac Type Severity Reaction Status Date / Time hydromorphone Allergy Itching Verified 07/26/24 10:51 Review of Systems Review of Systems: Yes all other systems are reviewed and are negative Constitutional: Constitutional: Reports as per [facility] Past Medical History Attestation statement: The following information was validated with the patient. Social History Social History Household Members: None Housing: Homeless Do you presently have visiting nurse or other home services: No Alcohol intake: current Alcohol intake frequency: 3 or more drinks per day Alcohol type: beer and hard liquor Comment: 1:1 sitter Patient Tobacco Use Status: Never used Tobacco Substance Use Type: Crack/Cocaine Currently Displaying Signs/Symptoms of Drug Intoxication Withdrawal: No Have you been hit, kicked, punched, or otherwise hurt by someone within the past year? If so, by whom?: No Do you feel safe in your current relationship?: No Current Relationship Is there a partner from a previous relationship who is making you feel unsafe now?: No Are you made to feel afraid or neglected: No Advance Directives: No Advance Directives Information Provided: Yes Current/Past Psychiatric Disorders: Alcohol abuse, Mood disorder, PTSD and Substance abuse Dowd Symptoms: Anxiety and Hopelessness Family History: Attempts Access to Firearms: No Risk Factors Comment: Patient reports issues with housing and homelessness are a major contributing factor to his past thoughts of SI/HI. No change from prior assessment. Do you have a plan to hurt others: Specific and Vague Recently lost weight without trying: Yes How much weight loss: 14-23 pounds Eating poorly because of decreased appetite: No Nutrition screen score: 4 Poor oral hygiene: No service: No Physical Exam Vital Signs: Vital Signs: Last Vital Signs Temp 98.6 F 07/28/24 08:00 Pulse 77 07/28/24 08:00 Resp 14 07/28/24 08:00 BP 149/90 H 07/28/24 08:00 Pulse Ox 95 07/28/24 08:00 O2 Del Method Room Air 07/28/24 08:00 BMI result Body Mass Index 36.0 Const: General: cooperative, comfortable and no acute distress Orientation/consciousness: patient oriented x3 Limitations: no limitations HEENT: Head: Yes normal to inspection, Yes normocephalic and Yes atraumatic Ears: hearing grossly normal bilaterally General nose exam: Normal external nose present Face and sinus: Yes normal facial exam Mouth: Normal oral and palatal mucosa present, oropharynx normal and moist mucous membranes Throat: Yes posterior oropharynx normal Eyes: General: appearance normal, both eyes and all related structures Eyelids: Yes eyelids normal Conjunctivae: conjunctivae normal Sclerae: sclerae normal Pupils: Equal, round and reactive pupils present EOM: EOMs intact bilaterally Neck: Neck: Yes normal visual inspection, Yes full ROM and Yes no lymphadenopathy Lymphatic: no lymphadenopathy noted Chest: Chest palpation & inspection: normal inspection of the chest Resp: Effort & Inspection: normal respiratory effort and able to speak in complete sentences Auscultation: clear to auscultation bilaterally, no crackles, no rales, no rhonchi and no wheezes Cardio: Rate: regular rate Rhythm: regular rhythm Heart sounds: S1 normal heart sound present and S2 normal heart sound present GI: Inspection: Yes normal to inspection Skin: General skin exam: no rashes or lesions noted Trauma: no lacerations or abrasions Wounds: no wounds Neuro: General: patient oriented x3 and moves all extremities Cranial nerves: Yes Equal, round and reactive pupils present Extrem: General: Yes normal to inspection Right upper extremity: normal to inspection Left upper extremity: normal to inspection Right lower extremity: normal to inspection Left lower extremity: normal to inspection Course Reevaluation(s) Reevaluation #1: I Elise Mas PA-C have accepted care of the patient at signed out pending EKG, CPK. The patient is already a bed search. CPK was 550, renal function is baseline, EKG reveals no ischemic changes QTC is 466. I just got word from the pad, the patient has known alcohol use disorder, they are requesting Ativan. Placing a CIWA scale he has a about a 10, I will give a 1 time dose of p.o. Ativan 2 mg, if he escalates I will initiate the phenobarb protocol. Reevaluation #2: 07/27/2024 08:30 DR. RUIZ PATIENT IS STABLE OVERNIGHT NO NEW COMPLAINT PATIENT WILL BE DISCHARGED TO [facility] THIS WILL END THE OBSERVATION STATUS Time: 08:32 Medications Administered Discontinued Medications Generic Name Dose Route Start Last Admin Trade Name Bailey PRN Reason Stop Dose Admin Acetaminophen 975 mg 07/27/24 09:57 07/27/24 10:26 Acetaminophen 325 Mg Tablet PO 07/27/24 09:58 975 mg ONCE ONE Administration Acetaminophen 650 mg 07/27/24 12:17 07/28/24 07:41 Acetaminophen 325 Mg Tablet PO 650 mg Q6H PRN Administration Headache/Pain, Scale 1-10 Amlodipine Besylate 10 mg 07/26/24 20:45 07/28/24 08:28 Amlodipine Besylate 10 Mg Tablet PO 10 mg DAILY CRISTINA Administration Protocol Enoxaparin Sodium 40 mg 07/28/24 09:15 07/28/24 10:02 Enoxaparin Sodium 40 Mg/0.4 Ml Syringe SUBCUT Not Given Q24H CRISTINA Sodium Chloride 1,000 mls @ 100 mls/hr 07/27/24 15:00 07/28/24 02:48 Ns IVCONT Infused .Q10H CRISTINA Infusion Sodium Chloride 1,000 mls @ 100 mls/hr 07/28/24 09:00 07/28/24 08:58 Ns IVCONT 100 mls/hr .Q10H CRISTINA Administration Sodium Chloride 1,000 mls @ 100 mls/hr 07/28/24 09:15 07/28/24 10:02 Ns IVCONT Not Given .Q10H CRISTINA Piperacillin Sod/Tazobactam 50 mls @ 100 mls/hr 07/28/24 09:30 07/28/24 10:02 Sod 3.375 gm/ Sodium Chloride IV Not Given Q6H CRISTINA Levofloxacin 750 mg 07/27/24 17:00 07/27/24 17:41 Levofloxacin 750 Mg Tablet PO 750 mg Q24H CRISTINA Administration Lorazepam 2 mg 07/26/24 20:44 07/26/24 20:50 Lorazepam 1 Mg Tablet PO 07/26/24 20:45 2 mg ONCE ONE Administration Lorazepam 2 mg 07/27/24 06:34 07/27/24 06:42 Lorazepam 1 Mg Tablet PO 07/27/24 06:35 2 mg ONCE ONE Administration Lorazepam 1 mg 07/27/24 12:17 07/27/24 15:51 Lorazepam 1 Mg Tablet PO 1 mg Q2H PRN Administration CIWA 8-11 Nicotine 21 mg 07/28/24 09:00 07/28/24 08:54 Nicotine 21 Mg Patch.Td24 TRANSDERMA Not Given DAILY CRISTINA Olanzapine 10 mg 07/27/24 21:00 07/27/24 21:07 Olanzapine 10 Mg Tablet PO 10 mg BEDTIME CRISTINA Administration Omeprazole 40 mg 07/27/24 15:05 07/28/24 06:44 Omeprazole 40 Mg Capsule. PO 40 mg DAILY@0630 CRISTINA Administration Ondansetron HCl 4 mg 07/27/24 09:57 07/27/24 10:26 Ondansetron Odt 4 Mg Tab.Rapdis TRANSLINGU 07/27/24 09:58 4 mg ONCE ONE Administration Ondansetron HCl 4 mg 07/27/24 13:42 07/28/24 07:46 Ondansetron Odt 4 Mg Tab.Rapdis TRANSLINGU 4 mg Q8H PRN Administration Nausea and Vomiting Oxycodone HCl 5 mg 07/27/24 14:58 07/27/24 15:45 Oxycodone Hcl Immed Release 5 Mg Tablet PO 07/27/24 14:59 5 mg ONCE ONE Administration Oxycodone HCl 5 mg 07/27/24 21:25 07/27/24 22:00 Oxycodone Hcl Immed Release 5 Mg Tablet PO 07/27/24 21:26 5 mg ONCE ONE Administration Thiamine HCl 100 mg 07/28/24 09:00 07/28/24 08:28 Thiamine Hcl 100 Mg Tablet PO 100 mg DAILY CRISTINA Administration Medical Decision Making Medical Decision Making MDM Narrative: This is a 59-year-old male who presents emergency department with concerns of suicidal or homicidal ideation. On arrival, vital signs within normal limits. He is speaking in full sentences under no acute distress. He has no current complaints. He does report that he drinks alcohol daily. No history of alcohol withdrawal seizures. Will obtain labs, UA, and patient will be seen by the care team. We will continue to closely monitor Course: Labs returned, he has no leukocytosis, H&H within normal limits, chemistry revealing AST and ALT slightly elevated at 70/41, urine does not appear to be infectious, positive cocaine, marijuana, ethyl alcohol 333. Given positive for cocaine, added on CPK, and EKG. Patient has not been seen by care team. CPK and EKG will be reviewed, and at that time, patient will be medically cleared if within normal limits. >> Pt will be made a inpatient psychiatric bedsearch Differential Diagnosis Differential Diagnoses: The differential diagnosis associated with the presentation includes Depression, anxiety, suicidal ideation, homicidal ideation Admission/Observation Consideration of admission/observation: Escalation of care including admission/observation considered Lab Data MDM Lab Attestation statement: I reviewed the patient's lab results. No leukocytosis, stable H&H, chemistry revealing elevation in AST and ALT at 70 and 41, ethyl alcohol 333 07/27/24 14:32 07/28/24 07:37 Labs: Lab Results 07/26/24 07/26/24 Range/Units 11:00 14:24 WBC 5.6 (4.8-10.8) X10*3/uL RBC 5.03 (4.60-5.80) X10*6/uL Hgb 15.8 (14.0-18.0) g/dl Hct 45.0 (42.0-52.0) % MCV 89.5 (80.0-98.0) fL MCH 31.4 (27.0-33.0) pg MCHC 35.1 (31.0-36.0) g/dl RDW 13.0 (11.0-16.0) % Plt Count 173 (160-400) X10*3/uL MPV 9.2 L (9.4-12.4) fL Immature Gran % (Auto) 0.2 (0.0-0.4) % Neut % (Auto) 63.3 (45-73) % Lymph % (Auto) 25.2 (20-40) % [place] % (Auto) 10.9 (2-11) % Eos % (Auto) 0.2 (0-4) % Baso % (Auto) 0.2 (0-2) % Lymph # (Auto) 1.4 (1.2-4.9) X10*3/uL [place] # (Auto) 0.6 (0.1-1.2) X10*3/uL Eos # (Auto) 0.0 (0.0-0.4) X10*3/uL Baso # (Auto) 0.0 (0.0-0.2) X10*3/uL Abs Immat Gran (auto) 0.01 (0.00-0.03) X10*3/uL Absolute Neuts (auto) 3.5 (2.0-8.3) x10*3/uL Absolute Nucleated RBC 0.000 (0.0-0.012) X10*3/uL Nucleated RBC % (auto) 0.0 (0.0-0.2) /100WBC Sodium 145 (135-145) mmol/L Potassium 3.5 (3.3-5.1) mmol/L Chloride 107 (96-108) mmol/L Carbon Dioxide 25 (22-29) mmol/L Anion Gap 17 (12-20) BUN 5 L (9-16) mg/dL Creatinine 0.75 (0.5-1.4) mg/dL Estim Creat Clear Calc 122.0 Estimated GFR > 60 Random Glucose 97 (60-115) mg/dL Calcium 8.6 (8.4-10.2) mg/dL Total Bilirubin 0.9 (0.0-1.0) mg/dL AST 70 H (5-37) U/L ALT 41 H (0-40) U/L Alkaline Phosphatase 75 (39-117) U/L Total Creatine Kinase 550 H (38-174) U/L Total Protein 8.2 H (6.5-8.0) g/dL Albumin 4.5 (3.5-5.0) g/dL Urine Color Yellow Urine Appearance Clear Urine pH 5.5 (5.0-9.0) Ur Specific [place] 1.010 (1.005-1.025) Urine Protein Negative (Neg-Trace) mg/dL Urine Glucose (UA) Negative (Negative) mg/dL Urine Ketones Trace (Negative) mg/dL Urine Blood Trace H (Negative) Urine Nitrite Negative (Negative) Ur Leukocyte Esterase Negative (Negative) Urine RBC 0-2 (0-2) /HPF Urine WBC 0-5 (0-5) /HPF Ur Squamous Epith Cells 0-2 (0-2) /HPF Urine Bacteria None Seen (None Seen) Hyaline Casts 0-2 (0-2) /LPF Salicylates < 5.0 L (15-30) mg/dL Urine Opiates Screen Not Detected (Not Detect) Ur Buprenorphine Scrn Not Detected (Not Detect) ng/mL Ur Oxycodone Screen Not Detected (Not Detect) ng/mL Urine Methadone Screen Not Detected (Not Detect) ng/mL Urine Fentanyl Screen Not Detected (Not Detect) Acetaminophen < 3 (<30) mcg/mL Ur Barbiturates Screen Not Detected (Not Detect) Ur Phencyclidine Scrn Not Detected (Not Detect) Ur Amphetamines Screen Not Detected (Not Detect) U Benzodiazepines Scrn Not Detected (Not Detect) Urine Cocaine Screen POSITIVE H (Not Detect) U Marijuana (THC) Screen POSITIVE H (Not Detect) Ethyl Alcohol 333 H* mg/dL COVID-19 (ALEXUS) Negative (Negative) COVID-19 Clin Com See Note Discharge Plan Discharge Clinical Impression: Suicidal ideation, Alcohol use disorder, Homicidal ideation Patient Disposition: Admitted As Inpatient Discharge Date/Time: 07/27/24 11:09
--- OUTSIDE RECORDS SUMMARY | 2024-07-26 13:48 | XMS_ITS | Clinical Summary ---
Author Organization [employer] Address [address] [place] [address] Care Team Providers Care Billing Services Manager Name Role Phone Anahi Richards MD Primary Care Provider [phone] Allergies Active Allergy Reactions Criticality Noted Date Comments Hydromorphone Itching Low 06/16/2022 developed itchiness all over the body Medications * This document contains information received from the source organization and may not represent a complete record from that organization. Blood Pressure kitIndications:P rimary hypertension To check your BP daily 1 kit 3 Active chlorthalidone (Hygroton) 25 MG tabletIndication s:Primary hypertension Take 1 tablet (25 mg) by mouth in the morning. 30 tablet 11 4 Active Additional Information Patient not taking.Reported on 09/29/2023 acetaminophen (Tylenol) 325 MG tablet Take 975 mg by mouth every 6 (six) hours if needed for moderate pain. 4 Active metoprolol succinate XL (Toprol-XL) 25 MG 24 hr tablet Take 1 tablet by mouth Once per day. 4 Active acamprosate (Campral) 333 MG EC tablet Take 2 tablets by mouth 3 times daily. With meals 4 Active folic acid (Folvite) 1 MG tablet Take 1 tablet by mouth Once per day. 4 Active HYDROmorphone (Dilaudid) 2 MG tablet Take 1 tablet by mouth every 8 (eight) hours if needed for severe pain. TAKE IF NO RESPONSE TO OTHER PAIN MEDICATION. 4 Active lidocaine (Lidoderm) 5 % patch APPLY 1 PATCH TO AFFECTED AREA. WEAR FOR 12 HOURS THEN REMOVE FOR 12 HOURS. REPEAT DAILY. 4 Active tiZANidine (Zanaflex) 2 MG tablet Take 1 tablet by mouth 3 times daily. 4 Active potassium chloride CR (Klor-Con M20) 20 MEQ ER tabletIndication s:Hypokalemia Take 1 tablet (20 mEq) by mouth Once per day. Do not crush or chew. 6 tablet 4 12/22/19 25 Active thiamine (Vitamin B-1) 50 MG tabletIndication s:Paresthesias Take 1 tablet (50 mg) by mouth Once per day. 30 tablet 11 4 12/27/19 25 Active tiZANidine (Zanaflex) 4 MG tabletIndication s:Neck pain Take 1 tablet (4 mg) by mouth every 6 (six) hours if needed for muscle spasms for up to 10 days. 30 tablet 4 Active DULoxetine (Cymbalta) [address] capsuleIndicatio ns:Neck pain Take 1 capsule (30 mg) by mouth 2 times daily. Do not crush or chew. 60 capsule 11 5 02/21/19 26 Active gabapentin (Neurontin) 300 MG capsuleIndicatio ns:Paresthesias Take 1 capsule (300 mg) by mouth 3 times daily. 90 capsule 3 5 Active oxyCODONE (Roxicodone) 5 MG immediate release tabletIndication s:Neck pain,Paresthesia s Take 1 tablet (5 mg) by mouth every 6 (six) hours if needed for severe pain. 15 tablet 5 Active amLODIPine (Norvasc) 10 MG tabletIndication s:Primary hypertension TAKE 1 TABLET BY MOUTH EVERY DAY 90 tablet 5 Active thiamine (Vitamin B-1) 50 MG tabletIndication s:Paresthesias Take 1 tablet (50 mg) by mouth Once per day. 30 tablet 11 06/06/2024 2:47 PM EDT 5 06/07/19 26 Active hydrocortisone (Anusol-HC) 2.5 % rectal creamIndications :Grade I hemorrhoids Insert into the rectum 2 times daily. 28 g 1 06/06/2024 2:47 PM EDT 5 Active Active Problems Problem Noted Date Diagnosed Date Alcohol use, unspecified with intoxication, unsp ecified 07/26/2024 Diarrhea 09/29/2023 Assessment & Plan (09/29/2023 1:36 PM EDT): Pt seems unwell ,here elevated BP, Orthostatic VS checked are neg , CBG 73 From exam noted pain w palpation over lower vertebral points and abd left abdominal tenderness worse in LLQ, no guarding no rebound , pt vomit here in office and had diarrhea. Pt w multiple complaints and given hx of septic arthritis in his neck and now worsening lower back pain will need prompt evaluation for this as well for ongoing likely colitis and will need to r/o UGI bleed w reported melenas -pt to go to ED for further eval-offered to call EMS but pt refuse ,states his relatives waiting for him outside clinic will take him . I called [facility] ED to inform that pt will be going today and about above concerns -spoke w Zhanna. As well to have HIV,Hep C,B,etc screening -pt will need to have r/o C diff again and r/o GIB -Referred to GI today STAT--requested referral sp to send to [facility] from pt request -To f w as soon is discharge from hospital for Hospital and w PCP Lumbar disc herniation 09/13/2023 Cervical radiculopathy 02/07/2023 Assessment & Plan (02/15/2023 9:33 AM EST): MRI previously ordered Oct 2022, not approved. Pt has since completed physical therapy sessions with continued pain and radicular symptoms, recently expanding to right side. MRI order replaced 02/07/23 Refill short course of Percocet 5-325mg Q12H PRN severe pain x 7 days (14 tablets). Reviewed med safety and SE. Referral to [facility] for further eval placed, pt to call to schedule appt Cont symptomatic management Reviewed ED/urgent care precautions FMLA pending Assessment & Plan (02/07/2023 7:22 PM EST): MRI previously ordered Oct 2022, not approved Pt has since completed physical therapy sessions with continued pain and radicular symptoms, recently expanding to right side. MRI order replaced 02/07/23 Given severe nature of pain, in agreement to prescribe short course of Percocet 5-325mg Q12H PRN severe pain x 7 days (14 tablets). Reviewed med safety and SE. Referral to [facility] for further eval Cont symptomatic management Reviewed ED/urgent care precautions Letter for work generated Recurrent umbilical hernia 06/16/2022 Anxiety 05/09/2021 Clostridium difficile colitis 05/09/2021 Severe obesity 04/04/2013 HTN (hypertension) 04/04/2013 Obstructive sleep apnea syndrome 04/04/2013 Acute low back pain 04/04/2013 Assessment & Plan (09/30/2023 2:06 PM EDT): Patient has hx of c3-c5 facet septic arthirtis with left sided epidural phlegmon, early l3-l4 joint infection and 3mm abscess with osteomyelitis that was treated for 6 weeks of cetriaxone and vancomycin treatment eneded on 05/03, now presents with flank back/cervical pain that has worsened during the past days with associated episode of chills. Patient was instructed to visit ER for further imaging and evaltion for possible recurrence of septic arthirtis. He did not wanted a ambulance and referred he was going to [facility] 04/04/2013 Encounters * This document contains information received from the source organization and may not represent a complete record from that organization. Date Type Department Care Team Description 07/25/2024 Telephone [facility] [address] [place] [address] Anahi Richards MD Nurse Triage 06/06/2024 9:15 AM EDT Office Visit [facility] [address] [place] [address] Anahi Richards MD Primary hypertension (Primary Dx); Mixed hyperlipidemia; Paresthesias; Low blood potassium; Hepatitis C virus infection without hepatic coma, unspecified chronicity; Grade I hemorrhoids; Dietary counseling; Exercise counseling; Class 3 severe obesity due to excess calories with serious comorbidity and body mass index (BMI) of 40.0 to 44.9 in adult; Encounter for immunization 06/06/2024 Travel 05/25/2024 Patient Outreach [facility] [address] [place] [address] Anahi Richards MD Pre-visit Planning (Pre visit planning LVM ) 05/05/2024 Refill [facility] [address] [place] [address] Minerva Meyers MD Primary hypertension from Last 3 Months Immunizations Immunization Administration Dates Next Due Hep B, adult 06/06/2024 Influenza Injectable Quadriv alant Preservative Free IIV4 MDCK 02/10/2018 Influenza injectable quadrivalent preservative f ree 12/25/2020 Influenza, IIV3, injectable 12/25/2020 Pfizer Covid-19 Vaccine 12+ Bivalent 03/03/2022 Pneumococcal Conjugate PCV 20 06/06/2024 Pneumococcal Polysaccharide PPSV23 01/01/2019 Td (adult), unspecified 02/20/2018 Tdap 02/10/2018 Social History Tobacco Use Types Packs/Day Years Used Date Smoking Tobacco: Never Passive Smoke Exposure: Never Smokeless Tobacco: Never Tobacco Cessation:Counseling Given: Not Answered Depression Answer Date Recorded Patient Health Questionnaire-9 Score 26 11/23/2022 Patient Health Questionnaire-9 Score 26 11/23/2022 Last PHQ-9: Questionnaire Data Not on file 1 Housing Stability Answer Date Recorded What is your housing situation today? I have sree tyson 04/14/[address] you li ve. Do you have problems with any of the following? Water leaks 04/14/2023 Food Insecurity Answer Date Recorded Within the past 12 months, y ou worried that your food would run out before you got money to buy more: Sometimes True 2023 Within the past 12 months,th e food you bought just didn't last and you didn't have enough money to get more: Sometimes True 04/14/2023 Transportation Answer Date Recorded In the past 12 months, has l ack of transportation kept you from medical appts, meetings, work or from getting things needed for daily living? No 04/14/2023 Utilities Answer Date Recorded In the past 12 months, has t he electric, gas, oil or water company threatened to shut off services in your home? No 04/14/2023 Depression Answer Date Recorded Patient Health Questionnaire-2 Score 6 11/23/2022 Sex and Gender Information Value Date Recorded Sex Assigned at Male 12/08/2021 10:16 AM EDT Legal Sex Male 10:16 AM EDT Gender Identity Male 12/08/2021 10:16 AM EDT Sexual Orientation Straight 12/08/2021 10 :16 AM EDT Last Filed Vital Signs Vital Sign Reading Time Taken Comments Blood Pressure 131/78 06/06/2024 9:07 AM EDT Pulse 58 06/06/2024 9:07 AM EDT Temperature 36.7 C (98.1 F) 06/06/2024 9:07 AM EDT Respiratory Rate 16 06/06/2024 9:07 AM EDT Oxygen Saturation 98% 06/06/2024 9:07 AM EDT Inhaled Oxygen Concentration - - Weight 120 kg (263 lb 8 oz) 06/06/2024 9:07 AM E DT Height 170.2 cm (5' 7 ) 06/06/2024 9:07 AM EDT Body Mass Index 41.27 06/06/2024 9:07 AM EDT Plan of Treatment Upcoming Encounters Date Type Department Care Team (Late st Contact Info) Description 09/13/2024 9:00 AM EDT Office Visit [facility] [address] [place] [address] Anahi Richards MD [address] [place] [address] Health Maintenance Due Date Last Done Comments CT Colonography 1965 FIT DNA/Cologuard 1965 FIT 1965 FOBT 1965 Sigmoidoscopy 1965 Disability Screening 1965 Alcohol/Substance Use Screening 1977 Hepatitis A Vaccines (1 of 2 - Risk 2-dose series) 1984 Dental Prophylaxis 02/28/2010 08/27/2009 Zoster Vaccines (1 of 2) 04/22/2015 Dental Oral Exam 10/02/2016 04/03/2016, 06/21/2008 Dental X-Ray: Bitewings 12/02/2019 11/30/2018, 04/03 Dental X-Ray: Full Mouth 12/09/2021 12/08/2018, 03/12 Depression Monitoring 05/25/2023 11/23/2022, 023 COVID-19 Vaccine ( season) 2023 03/03/2022, 11/19/2020, 03/23/2020, Additional history exists SDOH Screening 04/13/2024 04/14/2023 Hepatitis B Vaccines (2 of 3 - 19+ 3-dose series) 07/04/2024 06/06/2024 Diabetes: Hemoglobin A1C 01/31/2025 024, 09/09/2023, 03/25/2022 Tobacco Screening 02/21/2025 02/22/2024 Lipid Panel 11/28/2025 11/28/2020, 01/19/2020 DTaP/Tdap/Td Vaccines (3 - Td or Tdap) 02/21/2028 02/20/2018, 02/10/2018 Colonoscopy 04/11/2029 04/11/2024, 06/05/2014 Colorectal Cancer Screening 04/11/2029 RSV Patients and Patients Aged 60 years or older (1 - 1-dose 75+ series) 2040 Influenza Vaccine Completed 12/08/2023, , 12/25/2020, Additional history exists HIV Screening Completed 12/17/2023 Pneumococcal Vaccine: 50+ Years Completed 06/06/2024, 01/01/2019 HIB Vaccines Aged Out No longer eligi ble based on patient's age to complete this topic HPV Vaccines Aged Out No longer eligi ble based on patient's age to complete this topic IPV Vaccines Aged Out No longer eligi ble based on patient's age to complete this topic Meningococcal B Vaccine Aged Out No l onger eligible based on patient's age to complete this topic Meningococcal Vaccine Aged Out No ian sarah eligible based on patient's age to complete this topic RSV under 20 months Aged Out No longe r eligible based on patient's age to complete this topic Rotavirus Vaccines Aged Out No longer eligible based on patient's age to complete this topic Procedures Procedure Name Priority Date/Time Associated Diagnosis Comments COLONOSCOPY Routine 04/11/2024 11:31 AM EST POCT GLYCATED HEMOGLOBIN, TOTAL Routine 02/01/2024 10:44 AM EST IFG (impaired fasting glucose) HIV 1/2 ANTIGEN/ANTIBODY, FOURTH GENERATION W/RFL Routine 12/17/2023 3:59 PM EST Flank pain LIPID PANEL, STANDARD Routine 11/28/2020 10:15 AM EDT PANORAMIC RADIOGRAPHIC IMAGE Routine 12/08/2018 12:00 AM EDT BITEWING - SINGLE RADIOGRAPHIC IMAGE Routine 11/30/2018 12:00 AM EDT PERIODIC ORAL EVALUATION - ESTABLISHED PATIENT Routine 04/03/2016 12:00 AM EST PROPHYLAXIS - ADULT Routine 08/27/2009 1 2:00 AM EDT from Last 3 Months or Most Recently Relevant to Health Maintenance Results * Colonoscopy (04/11/2024 11:31 AM EST) Anatomical Region Laterality Modality Endoscopy [facility] Provider ENDOSCOPY PROCEDURE ORDER HANS Final Result * POCT HGB A1C (02/01/2024 10:44 AM EST) Hemoglobin A1C 5.7 4.0 - 6.0 % QC Media Lot # [id number] Lot# Expiration Date [id number] Blood 02/01/2024 10:4 4 AM EST Anahi Richards MD POINT OF CARE TEST ENTER/ED IT ORDERABLES Final Result * HIV-1/2 Antigen and Antibodies, Fourth Generation, with Reflexes (12/17/2023 3:59 PM EST) HIV AB/AG Nonreactive Nonreactive [facility] Comment:HIV-1 p24 Ag and/or HIV-1/HIV-2 Ab not detected.A test result that is nonreactive does not exclude thepossibility of exposure to or infection with HIV-1 and/orHIV-2. Nonreactive results in this assay for individualswith prior exposure to HIV-1 and/or HIV-2 may be due toantigen and antibody levels that are below the limit ofdetection of this assay.The [employer] HIV Ag/Ab Combo assay result andsupplemental assay results should be interpreted inconjunction with the patient's clinical presentation,history and other laboratory results. If the results areinconsistent with clinical evidence, additional testing issuggested to confirm the result. Blood Venous blood specimen / Unknown 12/17/2023 3:59 PM EST 12/17/2023 6:09 PM EST us Anahi Richards MD LAB BLOOD ORDERABLES Final Result Performing Organization Address [facility] Co de Phone Number [facility] [address] [place] [phone] * (ABNORMAL) LIPID PANEL, STANDARD (11/28/2020 10:15 AM EDT) Chol/HDLC Ratio 4.1 <5.0 (calc) [facility] Cholesterol, Total 227(H) <200 mg/dL [facility] HDL Cholesterol 55 > OR = 40 mg/dL [facility] LDL Cholesterol 145(H) mg/dL (calc) [facility] Comment: Reference range: <100 Desirable range <100 mg/dL for primary prevention; <70 mg/dL for patients with CHD or diabetic patients with > or = 2 CHD risk factors. LDL-C is now calculated using the Charbel-Jane calculation, which is a validated novel method providing better accuracy than the Friedewald equation in the estimation of LDL-C. Charbel SS et al. KEISHA. 2013;310(19): 0556-4896 (http://education.Minbox.com/faq/PRS475) Non-HDL Cholesterol 172(H) <130 mg/dL (calc) [facility] Comment: For patients with diabetes plus 1 major ASCVD risk factor, treating to a non-HDL-C goal of <100 mg/dL (LDL-C of <70 mg/dL) is considered a therapeutic option. Triglycerides 148 <150 mg/dL [facility] 11/28/2020 10:1 5 AM EDT us Brittany Serra MD LAB BLOOD ORDERABLES Final Resul t Performing Organization Address City/[facility]/ZIP Co de Phone Number [facility] [address] [place] [address], from Last 3 Months or Most Recently Relevant to Health Maintenance Insurance [address] [place] [address] , [address] [place] [address] Care Teams Billing Services Manager Relationship Specialty Start Date End Date Anahi Richards MD [address] [place] [id number] PCP - General Internal Medicine 03/10/13
--- NOTE | 2024-07-26 14:14 | PC.NURSE ---
Pt wakes for lunch and VS. Pt reports he feels drunk at this time. VSS, Gait is steady. Pt uses the bathroom. CIWA = 0 at this time. ED provider updated.
[2024-07-26 14:19] VITALS: BP 138/76; PULSE 76; RESP 18; TEMP 36.9; O2SAT 98
[2024-07-26 14:33] LABS: Appearance Urine Clear; Color Urine Yellow; Glucose Urine UA Negative (Negative); Leukocyte Esterase Urine Negative (Negative); Nitrite Urine Negative (Negative); PH 5.5 (5.0-9.0); UMIC TRIGGER UA YES; Urine Blood Trace (Negative); Urine Ketones Trace mg/dL (Negative); Urine Protein Negative (Neg-Trace)
[2024-07-26 14:38] LABS: Bacteria Urine None Seen (None Seen); Hyaline Casts Urine 0-2 /LPF (0-2); RBC Urine 0-2 /HPF (0-2); Squamous Epithelial Cell Urine 0-2 /HPF (0-2); WBC Urine 0-5 /HPF (0-5)
[2024-07-26 14:42] LABS: Amphetamine Screen Urine Not Detected (Not Detect); Barbiturates, Urine Not Detected (Not Detect); Benzodiazepines Screen Urine Not Detected (Not Detect); Buprenorphine Scr Not Detected (Not Detect); Cannabinoid Screen Urine POSITIVE (Not Detect); Cocaine Screen Urine POSITIVE (Not Detect); Fentanyl, urine Not Detected (Not Detect); Methadone Screen, Urine Not Detected (Not Detect); Opiate Screen Urine Not Detected (Not Detect); Oxycodone Screen Urine Not Detected (Not Detect); Phencyclidine Screen Urine Not Detected (Not Detect)
--- NOTE | 2024-07-26 18:17 | PC.NURSE ---
Addendum entered by Zulma Crouch RN 07/26/24 18:20: Pt offers no complaints at this time. CIWA completed, score of 0. KELSI Gilbert updated on Pts status. Original Note: Pt sleeps the majority of the afternoon. He wakes at this time to use the bathroom. Pt is A&Ox2--he asks for a reminder of where is he. He also states he cannot remember if he called his employer to let him know that he is here. Pt walks with a steady gait and requests something cold to drink. Dinner tray at bedside and Pt advised he may use the phone to make a call when he is ready.
--- NOTE | 2024-07-26 19:29 | ECG_ITS ---
Test Reason : MED CLEAR Blood Pressure : */* mmHG Vent. Rate : 75 BPM Atrial Rate : 75 BPM P-R Int : 186 ms QRS Dur : 74 ms QT Int : 418 ms P-R-T Axes : 56 -27 -10 degrees QTcB Int : 466 ms Normal sinus rhythm Nonspecific T wave abnormality Prolonged QT Abnormal ECG When compared with ECG of 17-Sep-2023 13:02, Nonspecific T wave abnormality now evident in Lateral leads Referred By: Ana Gilbert Electronically Signed By: Gustavo Villalpando
[2024-07-26 20:45] VITALS: BP 171/92; PULSE 72; RESP 18; TEMP 36.9; O2SAT 95
[2024-07-26 20:50] VITALS: BP 171/92
[2024-07-26] MEDS: LORazepam 1 MG TABLET 2 MG PO (20:50)
[2024-07-26] MEDS: amLODIPine Besylate 10 MG TABLET PO (20:50)
[2024-07-27 03:24] VITALS: BP 153/95; PULSE 88; RESP 17; TEMP 37.2; O2SAT 95
[2024-07-27] MEDS: LORazepam 1 MG TABLET 2 MG PO (06:42)
[2024-07-27 09:20] VITALS: BP 162/86; PULSE 81; RESP 16; TEMP 36.2; O2SAT 95
[2024-07-27] MEDS: amLODIPine Besylate 10 MG TABLET PO (09:30)
--- NOTE | 2024-07-27 09:36 | PC.NURSE ---
via patient phone patient called employer. asked for this RN to speak with HR regarding how HR can send his [employer] packet. [employer] packet printed and given to patient
[2024-07-27] MEDS: Ondansetron ODT 4 MG TAB.RAPDIS TRANSLINGU (10:26)
[2024-07-27] MEDS: Acetaminophen 325 MG TABLET 975 MG PO (10:26)
[2024-07-27 11:15] VITALS: BP 164/95; PULSE 75; RESP 18; TEMP 36.9; O2SAT 97
[2024-07-27 12:29] VITALS: BMI 38.7
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
--- NOTE | 2024-07-27 13:51 | HO.PM.IMCN ---
History of Present Illness Data of Consult Service Date: 07/27/24 Primary Care Provider: Anahi Richards MD [facility] Reason for consult: Abdominal pain 59-year-old male with PMH who presented to the emergency department with concerns of suicidal or homicidal ideation. Patient admitted to inpatient psych for further treatment. Patient drinks daily approximately 8 bears. Per ED records, he denies any history of withdrawal. Patient states that he has had increased stress due to being unhoused. Patient states that he drinks daily, states that he drinks 4 beers in the morning and 4 beers at night. Denies history of alcohol withdrawal. He denies any chest pain, shortness of breath at this time. Patient is being seen for nausea and 10 out of 10 abdominal pain. On exam he has diffuse abdominal pain, abdomen is soft however he is guarding his abdomen. Reports that he has been unable to eat, he also reports he has been unable to drink water. No fever or chills. No tachycardia. Denies any blood in his stool. Denies any dysuria. Patient is not tremulous. Patient was admitted to the ED yesterday, renal function was within normal limits, no white count. Reports a history of diverticulitis. Review of Systems Review of Systems: Denies any shortness of breath, chest pain, dizziness, lightheadedness, abdominal pain or discomfort, + nausea, No vomiting or diarrhea. Denies constipation or reflux PMFSH Social History Household Members: None Housing: Homeless Do you presently have visiting nurse or other home services: No Alcohol intake: current Alcohol intake frequency: 3 or more drinks per day Alcohol type: beer and hard liquor Patient Tobacco Use Status: Never used Tobacco Smoked in Last 30 Days: No Use of substances other than those prescribed or required for medical reasons: Yes Substance Use Type: Crack/Cocaine Substance Use Frequency: Occasionally Last Used Substance: Hours (ago) Have you been hit, kicked, punched, or otherwise hurt by someone within the past year? If so, by whom?: No Do you feel safe in your current relationship?: No Current Relationship Is there a partner from a previous relationship who is making you feel unsafe now?: No Are you made to feel afraid or neglected: No Advance Directives: No Advance Directives Information Provided: Yes Do you have a plan to hurt others: Vague Recently lost weight without trying: Yes How much weight loss: 34pounds or more Eating poorly because of decreased appetite: Yes Nutrition screen score: 7 Nutrition Risks: No Nutritional Risk Poor oral hygiene: No Meds Allergies Allergy/AdvReac Type Severity Reaction Status Date / Time hydromorphone Allergy Itching Verified 07/26/24 10:51 Active Medications: Current Medications Acetaminophen (Acetaminophen 325 Mg Tablet) 650 mg PO Q6H PRN PRN Reason: Headache/Pain, Scale 1-10 Al Hydroxide/Mg Hydroxide (Magnesium Hydrox/Alum Hydrox 30 Ml Oral.Susp) 30 ml PO Q6H PRN PRN Reason: Heartburn/Nausea Amlodipine Besylate (Amlodipine Besylate 10 Mg Tablet) 10 mg PO DAILY CRISTINA; Protocol Last Admin: 07/27/24 09:30 Dose: 10 mg Hydroxyzine HCl (Hydroxyzine Hcl 25 Mg Tablet) 25 mg PO Q6H PRN PRN Reason: mild anxiety Lorazepam (Lorazepam 1 Mg Tablet) 1 mg PO Q2H PRN PRN Reason: CIWA 8-11 Lorazepam (Lorazepam 1 Mg Tablet) 2 mg PO Q2H PRN PRN Reason: CIWA 12-15 Lorazepam (Lorazepam 1 Mg Tablet) 3 mg PO Q2H PRN PRN Reason: CIWA > 15, and call Magnesium Hydroxide (Milk Of Magnesia 30 Ml Oral.Susp) 30 ml PO DAILY PRN PRN Reason: Constipation Nicotine (Nicotine 21 Mg Patch.Td24) 21 mg TRANSDERMA DAILY CRISTINA Nicotine Polacrilex (Nicotine Polacrilex 2 Mg Gum) 4 mg BUCCAL Q2H PRN PRN Reason: Nicotine Cravings Ondansetron HCl (Ondansetron Odt 4 Mg Tab.Rapdis) 4 mg TRANSLINGU Q8H PRN PRN Reason: Nausea and Vomiting Thiamine HCl (Thiamine Hcl 100 Mg Tablet) 100 mg PO DAILY CRISTINA Trazodone HCl (Trazodone Hcl 50 Mg Tablet) 50 mg PO BEDTIME MRX1 PRN PRN Reason: Insomnia Home Medications ?Medication ?Instructions ?Recorded ?Confirmed ?Last Taken ?Type amlodipine 10 mg tablet 10 mg PO DAILY 07/26/24 07/26/24 Unknown History Physical Exam Vital Signs and Narrative: Vital Signs: Last Vital Signs Temp 98.4 F 07/27/24 11:15 Pulse 75 07/27/24 11:15 Resp 18 07/27/24 11:15 BP 164/95 H 07/27/24 11:15 Pulse Ox 97 07/27/24 11:15 O2 Del Method Room Air 07/27/24 11:15 BMI result Body Mass Index 38.7 CONST: Alert and oriented, in mild distress. Well nourished HEENT: Normocephalic, atraumatic, MMM, Eyes clear, Neck supple RESP: Lungs clear, RRR even and regular HEART:,RRR, S1, S2. No murmur, no edema GI:Abdomen Soft, tender, ND. + BS times four. + guarding :Deferred SKIN: Warm dry and intact, no visible lesions or rashes NEURO:CN II-XII Intact bilaterally, Sensation intact. Speech clear PSYCH: Anxious Results Labs 07/26/24 11:00 07/26/24 11:00 Labs: Laboratory Results - last 24 hr 07/26/24 07/26/24 11:00 14:24 Total Creatine Kinase 550 H Urine Color Yellow Urine Appearance Clear Urine pH 5.5 Ur Specific [place] 1.010 Urine Protein Negative Urine Glucose (UA) Negative Urine Ketones Trace Urine Blood Trace H Urine Nitrite Negative Ur Leukocyte Esterase Negative Urine RBC 0-2 Urine WBC 0-5 Ur Squamous Epith Cells 0-2 Urine Bacteria None Seen Hyaline Casts 0-2 Urine Opiates Screen Not Detected Ur Buprenorphine Scrn Not Detected Ur Oxycodone Screen Not Detected Urine Methadone Screen Not Detected Urine Fentanyl Screen Not Detected Ur Barbiturates Screen Not Detected Ur Phencyclidine Scrn Not Detected Ur Amphetamines Screen Not Detected U Benzodiazepines Scrn Not Detected Urine Cocaine Screen POSITIVE H U Marijuana (THC) Screen POSITIVE H Assessment and Plan (1) Abdominal pain: Status: Acute Plan Abdominal pain Rule out acute abdomen/pancreatitis/diverticulitis/Gastritis Patient with a history of alcohol misuse. -On CIWA scale. Check CBC, LFT's CBC, Urine CT abdomen without contrast pending 1X dose Oxycodone Start Omeprazole.
--- NOTE | 2024-07-27 13:54 | MHC.CLN ---
consult for wt loss on admission assessment current wt 112kg (07/27/24) previous wt hx 115.7kg (09/17/23) pt without significant wt change continue current care plan pt is of very low nutrition risk
[2024-07-27 14:49] LABS: MANUAL DIFF FLAG NO
[2024-07-27 14:52] LABS: Basophils Percent Auto 0.1 % (0-2); Hematocrit 46.3 % (42.0-52.0); Hemoglobin 16.2 g/dl (14.0-18.0); Imm Gran Abs Auto 0.02 X10*3/uL (0.00-0.03); Imm Gran Pct Auto 0.3 % (0.0-0.4); Lymphocytes Absolute Auto 1.2 X10*3/uL (1.2-4.9); Lymphocytes Percent Auto 15.9 % (20-40); Mean Corpuscular Hemoglobin 31.6 pg (27.0-33.0); Mean Corpuscular Volume 90.3 fL (80.0-98.0); Mean Platelet Volume 9.7 fL (9.4-12.4); Monocytes Absolute Auto 0.8 X10*3/uL (0.1-1.2); Monocytes Percent Auto 9.9 % (2-11); Neutrophils Absolute Auto 5.7 x10*3/uL (2.0-8.3); Neutrophils Percent Auto 73.8 % (45-73); Platelet Count 166 X10*3/uL (160-400); Red Blood Count 5.13 X10*6/uL (4.60-5.80); Red Cell Distribution Width 12.6 % (11.0-16.0); White Blood Count 7.7 X10*3/uL (4.8-10.8)
[2024-07-27 15:09] LABS: Alanine Aminotransferase 42 U/L (0-40); Albumin Level 4.5 g/dL (3.5-5.0); Alkaline Phosphatase 70 U/L (39-117); Aspartate Amino Transferase 58 U/L (5-37); Bilirubin Direct 0.6 mg/dL (0.0-0.5); Bilirubin Total 1.9 mg/dL (0.0-1.0); Lipase 47 U/L (8-78); Total Protein 8.1 g/dL (6.5-8.0)
[2024-07-27] MEDS: Omeprazole 40 MG CAPSULE.DR PO (15:45)
[2024-07-27] MEDS: oxyCODONE HCl Immed Release 5 MG TABLET PO ×2 (15:45→22:00)
[2024-07-27] MEDS: LORazepam 1 MG TABLET PO (15:51)
[2024-07-27] MEDS: 0.9 % Sodium Chloride 1,000 ML 100 ML IVCONT (16:20)
--- NOTE | 2024-07-27 16:30 | PM.EVENT ---
Event Note Date of Service: 07/27/24 Event Note: CT scan was reviewed showing evidence of segmental colitis. No evidence of sepsis, we will start Levaquin and continue to monitor notify medicine with any changes. Time Spent With Patient Time: Total time managing care of this patient today ____ minutes.
[2024-07-27 16:51] LABS: Anion Gap 16 (12-20); Blood Urea Nitrogen 7 mg/dL (9-16); Calcium 9.2 mg/dL (8.4-10.2); Carbon Dioxide 28 mmol/L (22-29); Chloride 101 mmol/L (96-108); Creatinine Clr Calc Pharmacy 133.8; Estimated Glomerular Filt Rate > 60; Glucose Random 93 mg/dL (60-115); Potassium 3.4 mmol/L (3.3-5.1); Sodium 142 mmol/L (135-145)
[2024-07-27] MEDS: levoFLOXacin 750 MG TABLET PO (17:41)
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
[2024-07-27] MEDS: Acetaminophen 325 MG TABLET 650 MG PO (21:00)
[2024-07-27] MEDS: OLANZapine 10 MG TABLET PO (21:07)
[2024-07-27 21:47] VITALS: BP 139/93; PULSE 79; RESP 18; TEMP 36.9; O2SAT 96
[2024-07-28] MEDS: Omeprazole 40 MG CAPSULE.DR PO (06:44)
[2024-07-28] MEDS: Acetaminophen 325 MG TABLET 650 MG PO (07:41)
[2024-07-28] MEDS: Ondansetron ODT 4 MG TAB.RAPDIS TRANSLINGU (07:46)
[2024-07-28 08:00] VITALS: BP 149/90; PULSE 77; RESP 14; TEMP 37; O2SAT 95
[2024-07-28 08:09] LABS: Alanine Aminotransferase 33 U/L (0-40); Albumin Level 3.9 g/dL (3.5-5.0); Alkaline Phosphatase 64 U/L (39-117); Anion Gap 14 (12-20); Aspartate Amino Transferase 44 U/L (5-37); Bilirubin Total 2.2 mg/dL (0.0-1.0); Blood Urea Nitrogen 8 mg/dL (9-16); Calcium 8.5 mg/dL (8.4-10.2); Carbon Dioxide 26 mmol/L (22-29); Chloride 103 mmol/L (96-108); Cholesterol 228 mg/dL (<200); Creatinine Clr Calc Pharmacy 128.4; Estimated Glomerular Filt Rate > 60; Glucose Random 85 mg/dL (60-115); HDL Cholesterol 52 mg/dL (>40); LDL Cholesterol Calculated 147 mg/dL (<100); Potassium 3.2 mmol/L (3.3-5.1); Sodium 140 mmol/L (135-145); Total Protein 7.1 g/dL (6.5-8.0); Triglycerides 148 mg/dL (<150)
[2024-07-28 08:15] LABS: Estimated Average Glucose 111 mg/dL; Hemoglobin A1C 142.7579 umol/L; Hemoglobin A1c % 5.5 % (<6.0)
[2024-07-28] MEDS: amLODIPine Besylate 10 MG TABLET PO (08:28)
[2024-07-28] MEDS: Thiamine HCL 100 MG TABLET PO (08:28)
[2024-07-28] MEDS: 0.9 % Sodium Chloride 1,000 ML 100 ML IVCONT (08:58)
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
== END 2024-07-28 11:51 | disposition short-term general hospital (02) | DRG 751 ==
LOC: HO.ED 07-27 10:15 → HO.PADLT16 07-27 10:54
PROVIDERS: Nurse Practitioner Family; Physician Assistant Medical; Admitting Provider Registered Nurse; Emergency Provider Emergency Medicine; PCP Internal Medicine; Visit Provider Psychiatry & Neurology Psychiatry
DX: F33.9 Major depressive disorder, recurrent, unspecified (principal); R45.850 Homicidal ideations; R45.851 Suicidal ideations; Y90.8 Blood alcohol level of 240 mg/100 ml or more; K50.10 Crohn's disease of large intestine without complications; F10.929 Alcohol use, unspecified with intoxication, unspecified; F14.10 Cocaine abuse, uncomplicated; Z20.822 Contact with and (suspected) exposure to COVID-19; Z79.899 Other long term (current) drug therapy
CPT/HCPCS: 36415; 74176; 80048; 80053; 80061; 80076; 80143; 80179; 80307; 81001; 82550; 83036; 83690; 85025; 87086; 87635; 93005; 99285; S9485

== ENCOUNTER → 2024-07-26 19:29 | Outpatient (BNV) | payer OTHER, SELFPAY | PROVIDERS: Admitting Provider Registered Nurse; Emergency Provider Emergency Medicine; PCP Internal Medicine; Visit Provider Internal Medicine Cardiovascular Disease | DX: R94.31 Abnormal electrocardiogram [ECG] [EKG] (principal); Z13.6 Encounter for screening for cardiovascular disorders | CPT/HCPCS: 93010 ==

== ENCOUNTER 2024-07-27 09:51 | Outpatient (BNV) | payer OTHER, SELFPAY | END 2024-07-27 13:56 | PROVIDERS: Admitting Provider Registered Nurse; Emergency Provider Emergency Medicine; PCP Internal Medicine; Visit Provider Radiology Diagnostic Radiology | DX: K76.0 Fatty (change of) liver, not elsewhere classified (principal); D35.02 Benign neoplasm of left adrenal gland; K43.9 Ventral hernia without obstruction or gangrene | CPT/HCPCS: 74176 ==

== ENCOUNTER → 2024-07-27 09:51 | Outpatient (BNV) | payer OTHER, SELFPAY | PROVIDERS: Admitting Provider Registered Nurse; Emergency Provider Emergency Medicine; PCP Internal Medicine; Visit Provider Nurse Practitioner Family | DX: R10.9 Unspecified abdominal pain (principal) | CPT/HCPCS: 99222; 99499 ==

== ENCOUNTER → 2024-07-27 09:51 | Outpatient (BNV) | payer OTHER, SELFPAY | PROVIDERS: Admitting Provider Registered Nurse; Emergency Provider Emergency Medicine; PCP Internal Medicine; Visit Provider Registered Nurse | DX: F33.2 Major depressive disorder, recurrent severe without psychotic features (principal); F10.90 Alcohol use, unspecified, uncomplicated; F14.10 Cocaine abuse, uncomplicated | CPT/HCPCS: 99233; 99238 ==

== ENCOUNTER 2024-07-28 12:11 | Inpatient (IN) | payer OTHER, SELFPAY ==
--- NOTE | 2024-07-28 10:26 | PM.IMHP ---
History of Present Illness Date of Service: 07/28/24 Chief Complaint: Abdominal pain, colitis 59-year-old male with a past medical history of hypertension, GERD, BIA, obesity, history of diverticulitis, history of CDIFF, history of H pylori infection. Major depressive disorder, PTSD, alcohol use disorder, and cocaine use disorder, presented to the ED reporting suicidal and homicidal ideation secondary to increased depression and substance use. He was admitted for treatment to inpatient psychiatric and developed abdominal pain. He is now transferred to the medical floor for further evaluation. Patient has a history of a laparoscopic sigmoid resection with colorectal anastomosis and loop ileostomy in 2018 secondary to diverticulitis. He subsequently had a reversal in January of 2020. Patient has also undergone laparoscopic repair of incisional and recurrent umbilical hernias in May of 2022. He was hospitalized in January of 2023 with septic arthritis, subsequently discharged on IV antibiotics and was in a rehab until May. Patient has a history of EtOH use, drinking 6-10 beers a day since age 12. Patient has been followed on psychiatric unit with a CIWA scale, has not been scoring. Patient was seen yesterday in the inpatient psych floor with reports of abdominal pain. He had diffuse abdominal pain with guarding, he underwent a CAT scan which demonstrated wall thickening of the hepatic flexure, transverse colon, splenic flexure and descending colon, consistent with segmental colitis. Patient was given a dose of Levaquin 750, a L of IV fluids, a dose of oxycodone, reported that he was feeling better in the afternoon. This morning upon examination patient continued to complain of abdominal pain, reports diarrhea, and nausea. No vomiting reported. No fever, no leukocytosis on labs. ALT/AST stable, Lipase WNL. Total Bili 2.2, slight increase from yesterday, Upon review of [facility] records patient has had an elevated total bilirubin in the past. Patient will be discharged to the [facility] floor for further evaluation of abdominal pain. GI has been consulted. Patient to start Zosyn, continue IV fluids. Review of Systems Review of Systems: Denies any shortness of breath, chest pain, dizziness, lightheadedness, + abdominal pain, + nausea, No vomiting or diarrhea. Denies constipation or reflux PMFSH Social History Household Members: None Housing: Homeless Do you presently have visiting nurse or other home services: No Alcohol intake: current Alcohol intake frequency: 3 or more drinks per day Alcohol type: beer and hard liquor Patient Tobacco Use Status: Never used Tobacco Substance Use Type: Crack/Cocaine Meds Allergies Allergy/AdvReac Type Severity Reaction Status Date / Time hydromorphone Allergy Itching Verified 07/26/24 10:51 Active Medications: Current Medications Acetaminophen (Acetaminophen 325 Mg Tablet) 650 mg PO Q6H PRN PRN Reason: Pain, Mild 1-3,fever,headache Calcium Carbonate (Calcium Carbonate 750 Mg Tab.Chew) 750 mg PO Q4H PRN PRN Reason: Heartburn Enoxaparin Sodium (Enoxaparin Sodium 40 Mg/0.4 Ml Syringe) 40 mg SUBCUT Q24H CRISTINA Sodium Chloride (Ns) 1,000 mls @ 100 mls/hr IVCONT .Q10H CRISTINA Piperacillin Sod/Tazobactam (Sod 3.375 gm/ Sodium Chloride) 50 mls @ 100 mls/hr IV Q6H CRISTINA Magnesium Hydroxide (Milk Of Magnesia 30 Ml Oral.Susp) 30 ml PO DAILY PRN PRN Reason: Constipation Melatonin (Melatonin 3 Mg Tablet) 6 mg PO BEDTIME PRN PRN Reason: Insomnia Ondansetron HCl (Ondansetron Hcl 4 Mg/2 Ml Vial) 4 mg IVPUSH Q8H PRN PRN Reason: Nausea and Vomiting Sodium Chloride (0.9 % Sodium Chloride Flush 3 Ml Syringe) 3 ml IVFLUSH QSHIFT [facility] Home Medications ?Medication ?Instructions ?Recorded ?Confirmed ?Last Taken ?Type amlodipine 10 mg tablet 10 mg PO DAILY 07/26/24 07/26/24 Unknown History Physical Exam Vital Signs and Narrative: Vital Signs: Last Vital Signs Temp 98.4 F 07/27/24 11:15 Pulse 75 07/27/24 11:15 Resp 18 07/27/24 11:15 BP 164/95 H 07/27/24 11:15 Pulse Ox 97 07/27/24 11:15 O2 Del Method Room Air 07/27/24 11:15 BMI result Body Mass Index 38.7 CONST: Alert and oriented, in mild distress. Well nourished HEENT: Normocephalic, atraumatic, MMM, Eyes clear, Neck supple RESP: Lungs clear, RRR even and regular HEART:,RRR, S1, S2. No murmur, no edema GI:Abdomen Soft, tender, ND. + BS times four. + guarding :Deferred SKIN: Warm dry and intact, no visible lesions or rashes NEURO:CN II-XII Intact bilaterally, Sensation intact. Speech clear PSYCH: Anxious Assessment and Plan (1) Abdominal pain: Qualifiers: Abdominal location: generalized Qualified Code(s): R10.84 - Generalized abdominal pain Status: Acute Plan 59-year-old male with past medical history of hypertension, GERD, BIA, obesity, history of diverticulitis, status post ileostomy with reversal, history of C diff and H pylori, major depressive disorder, PTSD, EtOH and cocaine use disorder was originally admitted to psych psychiatric inpatient treatment when he developed severe abdominal pain. He is now being transferred to the floor for treatment of colitis. Colitis/Abdominal pain. Abdominal CAT scan revealed wall thickening of the hepatic flexure, transverse colon, splenic flexure, and descending colon consistent with segmental colon Received a dose of Levaquin p.o. last evening, we will switch to Zosyn q.6 hours Patient has a history of C diff, reporting loose stools this morning. Will check Stool for CDIFF and stool studies. Patient with a history of alcohol misuse. -On CIWA scale. Not scoring. No evidence of withdrawal. Follow labs, continue IV fluids GI consulted Continue Omeprazole. HTN Continue Amlodipine. CODE Status: FULL CODE VTE Prophylaxis: LOvenox Quality Stroke Does the patient have a stroke diagnosis?: No VTE Prior VTE?: No VTE Risk Level:: Medical - moderate - high VTE Device Contraindication: Treatment Not Indicated VTE Drug Contraindication: N/A - Med Ordered
[2024-07-28 12:16] VITALS: BMI 39.6
--- OUTSIDE RECORDS SUMMARY | 2024-07-28 12:16 | XMS_ITS | Clinical Summary ---
Author Organization [employer] Address [address] [place] [address] Care Team Providers Care Child Care Attendant Name Role Phone Anahi Richards MD Primary Care Provider [phone] Allergies Active Allergy Reactions Criticality Noted Date [...] clinic will take him . I called [facility] ED to inform that pt will be going today and about above concerns -spoke w Zhanna. As well to have HIV,Hep C,B,etc screening -pt will need to have r/o C diff again and r/o GIB -Referred to GI today STAT--requested referral sp to send to [facility] from pt request -To f w [...] Reviewed med safety and SE. Referral to [facility] for further eval placed, [...] Reviewed med safety and SE. Referral to [facility] for further eval Cont [...] ambulance and referred he was going to [facility] 04/04/2013 Encounters * This document contains information received from the source organization and may not represent a complete record from that organization. Date Type Department Care Team Description 07/27/2024 Orders Only [facility] External Provider, [facility] 07/26/2024 Orders Only GENERIC EXTERNAL DATA DEPARTMENT Provider, Generic External Data 07/25/2024 Telephone [facility] [address] [place] [address] Anahi Richards MD Nurse Triage 06/06/2024 9:15 AM EDT Office Visit [facility] [address] [place] [address] Anahi Richards MD Primary hypertension (Primary Dx); Mixed hyperlipidemia; Paresthesias; Low blood potassium; Hepatitis C virus infection without hepatic coma, unspecified chronicity; Grade I hemorrhoids; Dietary counseling; Exercise counseling; Class 3 severe obesity due to excess calories with serious comorbidity and body mass index (BMI) of 40.0 to 44.9 in adult; Encounter for immunization 06/06/2024 Travel 05/25/2024 Patient Outreach [facility] [address] [place] [address] Anahi Richards MD Pre-visit Planning (Pre visit planning LVM ) 05/05/2024 Refill [facility] [address] [place], [place] [phone] Minerva Meyers MD Primary hypertension from Last [...] is your housing situation today? I have sreelizette tyson 04/14/[address] you [...] Description 09/13/2024 9:00 AM EDT Office Visit [facility] [address] [place] [address] Anahi Richards MD [address] [place] [address] Health Maintenance Due Date Last Done Comments [...] Procedure Name Priority Date/Time Associated Diagnosis Comments CT ABDOMEN PELVIS WO CONTRAST Routine 07/27/2024 2:07 PM EDT DRUG MONITOR, PANEL 1, SCREEN, URINE Routine 07/26/2024 2:24 PM EDT URINALYSIS, COMPLETE Routine 07/26/2024 2:24 PM EDT COLONOSCOPY Routine 04/11/2024 11:31 AM EST POCT [...] Recently Relevant to Health Maintenance Results * CT Abdomen Pelvis w/o Contrast (07/27/2024 2:07 PM EDT) Anatomical Region Laterality Modality Body, Pelvis, Abdomen Computed T omography 07/27/2024 2:07 PM EDT Narrative 07/27/2024 3:44 PM EDT [place] [address] CT Scan Report Signed Patient: Wolf Damon MR#: [id number] 400 : 1965 Acct:[id number] Age/Sex: 59 / M ADM Date: 07/27/24 Loc: [id number] 326-[address]: Radha Moreno INDUSTRIAL STAFF NURSE Ordering Physician: Autumn Gregg DNP Date of Service: 07/27/24 Procedure(s): CT abdomen pelvis wo IV con Accession Number(s): [id number] cc: Anahi Ricahrds MD; Autumn Gregg DNP Report Number: [id number]: Total DLP = 782.00 mGy-cm EXAMINATION: CT ABDOMEN AND PELVIS WITHOUT CONTRAST CLINICAL INFORMATION: Diffuse abdominal pain. COMPARISON: 03/18/2015 TECHNIQUE: Multidetector volumetric imaging was performed from the superior aspect of the liver through the pubic symphysis. Sagittal and coronal reformatted images were obtained on the technologist's workstation. This CT examination was performed using dose optimization techniques as appropriate, variously including the following: *Automated exposure control *Adjustment of mA and/or kV according to patient size (this includes techniques or standardized protocols for targeted exams where dose is matched to indication/reason for exam; i.e. extremities or head) *Use of iterative reconstruction technique FINDINGS: LUNG BASES: The visualized lung bases are unremarkable. LIVER, GALLBLADDER, AND BILIARY TREE: The unenhanced liver is normal in size, shape, with diffuse decreased attenuation consistent with fatty infiltration. There is focal fatty sparing abutting the gallbladder fossa. No focal hepatic lesion or biliary ductal dilatation is present. The gallbladder is unremarkable with no evidence of radiopaque gallstones, gallbladder wall thickening, or obvious pericholecystic inflammatory changes. PANCREAS: Unremarkable. SPLEEN: Unremarkable. ADRENAL GLANDS: Low-density adenoma on the left measuring 4.4 x 3.8 cm. The right gland is normal. KIDNEYS AND URETERS: The kidneys are normal in size, shape, and attenuation. No hydronephrosis, hydroureter, or calculi seen. No perinephric stranding. BLADDER: Unremarkable. GASTROINTESTINAL TRACT: Wall thickening of the hepatic flexure, transverse colon, splenic flexure and descending colon consistent with segmental colitis. Mild associated hyperemia. Rectosigmoid anastomotic suture line present, unremarkable in appearance. Ileocolonic anastomosis in the right upper quadrant, unremarkable in appearance. Appendix is surgically absent. Small bowel is normal in caliber and course. Stomach and duodenum appear normal. ABDOMINAL WALL: There is been prior ventral hernia repair with numerous surgical anchors present. There are fatty inguinal canals without definite hernias. LYMPH NODES: No abnormal lymphadenopathy.. VASCULAR: Mild atheromatous calcification of the aorta and iliac arteries. No aneurysm. PELVIC VISCERA: The prostate and seminal vesicles are unremarkable. OSSEOUS STRUCTURES: No suspicious lytic or blastic bone lesions. Mild degenerative changes of the bilateral hip joints and spine. CT/CT abdomen pelvis wo IV con IMPRESSION: 1. Wall thickening of the hepatic flexure, transverse colon, splenic flexure and descending colon consistent with segmental colitis. The rectum does not appear involved. 2. Right upper quadrant ileocolonic anastomosis, and rectosigmoid anastomosis. Both appear unremarkable. 3. Diffuse fatty infiltration of the liver. 4. Left lipid rich adrenal adenoma measuring 4.4 x 3.8 cm. 5. Prior ventral hernia repair. Electronically signed by: Radames Constantino MD 07/27/2024 03:41 PM EDT Dictated By: Radames Constantino MD Signed By: <Electronically signed by Radames Constantino MD in OV> 07/27/24 1541 DD/ 1407 TD/TT: 07/27/24 1522 Senior Software Engineering Manager: Procedure Note Donotuseinterpreter, Image - 07/27/[address] [place] [address] [address] Scan Report Signed Patient: Wolf Damon TMR#: [id number] 400 : 1965Acct:[id number] Age/Sex: 59 / MADM Date: 07/27/24 Loc: [id number] 326-[address]: Radha Moreno NP Ordering Physician: Autumn Gregg DNP Date of Service: 07/27/24 Procedure(s): CT abdomen pelvis wo IV con Accession Number(s): [id number] cc: Anahi Richards MD; Autumn Gregg DNP Report Number: [id number]: Total DLP = 782.00 mGy-cm EXAMINATION: CT ABDOMEN AND PELVIS WITHOUT CONTRAST CLINICAL INFORMATION: Diffuse abdominal pain. COMPARISON: 03/18/2015 TECHNIQUE: Multidetector volumetric imaging was performed from the superior aspect of the liver through the pubic symphysis. Sagittal and coronal reformatted images were obtained on the technologist's workstation. This CT examination was performed using dose optimization techniques as appropriate, variously including the following: *Automated exposure control *Adjustment of mA and/or kV according to patient size (this includes techniques or standardized protocols for targeted exams where dose is matched to indication/reason for exam; i.e. extremities or head) *Use of iterative reconstruction technique FINDINGS: LUNG BASES: The visualized lung bases are unremarkable. LIVER, GALLBLADDER, AND BILIARY TREE: The unenhanced liver is normal in size, shape, with diffuse decreased attenuation consistent with fatty infiltration. There is focal fatty sparing abutting the gallbladder fossa. No focal hepatic lesion or biliary ductal dilatation is present. The gallbladder is unremarkable with no evidence of radiopaque gallstones, gallbladder wall thickening, or obvious pericholecystic inflammatory changes. PANCREAS: Unremarkable. SPLEEN: Unremarkable. ADRENAL GLANDS: Low-density adenoma on the left measuring 4.4 x 3.8 cm. The right gland is normal. KIDNEYS AND URETERS: The kidneys are normal in size, shape, and attenuation. No hydronephrosis, hydroureter, or calculi seen. No perinephric stranding. BLADDER: Unremarkable. GASTROINTESTINAL TRACT: Wall thickening of the hepatic flexure, transverse colon, splenic flexure and descending colon consistent with segmental colitis. Mild associated hyperemia. Rectosigmoid anastomotic suture line present, unremarkable in appearance. Ileocolonic anastomosis in the right upper quadrant, unremarkable in appearance. Appendix is surgically absent. Small bowel is normal in caliber and course. Stomach and duodenum appear normal. ABDOMINAL WALL: There is been prior ventral hernia repair with numerous surgical anchors present. There are fatty inguinal canals without definite hernias. LYMPH NODES: No abnormal lymphadenopathy.. VASCULAR: Mild atheromatous calcification of the aorta and iliac arteries. No aneurysm. PELVIC VISCERA: The prostate and seminal vesicles are unremarkable. OSSEOUS STRUCTURES: No suspicious lytic or blastic bone lesions. Mild degenerative changes of the bilateral hip joints and spine. CT/CT abdomen pelvis wo IV con IMPRESSION: 1. Wall thickening of the hepatic flexure, transverse colon, splenic flexure and descending colon consistent with segmental colitis. The rectum does not appear involved. 2. Right upper quadrant ileocolonic anastomosis, and rectosigmoid anastomosis. Both appear unremarkable. 3. Diffuse fatty infiltration of the liver. 4. Left lipid rich adrenal adenoma measuring 4.4 x 3.8 cm. 5. Prior ventral hernia repair. Electronically signed by: Radames Constantino MD 07/27/2024 03:41 PM EDT Dictated By: Radames Constantino MD Signed By: <Electronically signed by Radames Constantino MD in OV> 07/27/24 1541 DD/ 1407 TD/TT: 07/27/24 1522 Senior Software Engineering Manager: [facility] External Provider IMG CT PROCEDURES Final Result * (ABNORMAL) Drug Monitoring, Panel 1, Screen, Urine (07/26/2024 2:24 PM EDT) Opiate Screen Urine Not Detected Not Detect [facility] Comment:Opiate cut-off is 30 0 ng/mL.Positive results are unconfirmed and should not be used fornon-medical purposes. Barbiturates, Urine Not Detected Not Detect [facility] Comment:Barbiturate cut-off is 200 ng/mL.Positive results are unconfirmed and should not be used fornon-medical purposes. Phencyclidine Screen Urine Not Detected Not Detect [facility] Comment:Phencyclidine cut-of f is 25 ng/mL.Positive results are unconfirmed and should not be used fornon-medical purposes. Amphetamine Screen Urine Not Detected Not Detect [facility] Comment:Amphetamine cut-off is 1000 ng/mL.Positive results are unconfirmed and should not be used fornon-medical purposes. Benzodiazepines Screen Urine Not Detected Not Detect [facility] Comment:Benzodiazepine cut-o ff is 200 ng/mL.Positive results are unconfirmed and should not be used fornon-medical purposes. Cocaine Screen Urine POSITIVE(A) Not Detect [facility] Comment:Cocaine cut-off is 3 00 ng/mL.Positive results are unconfirmed and should not be used fornon-medical purposes. Cannabinoid Screen Urine POSITIVE(A) Not Detect [facility] Comment:Cannabinoid cut-off is 50 ng/mL.Positive results are unconfirmed and should not be used fornon-medical purposes. Methadone Screen, Urine Not Detected Not Detect ng/mL [facility] Comment:Methadone cut-off is 300 ng/mL.Positive results are unconfirmed and should not be used fornon-medical purposes. FENTANYL URINE Not Detected Not Detect [facility] Comment:Fentanyl cut-off is 1 ng/mL.Positive results are unconfirmed and should not be used fornon-medical purposes. Oxycodone Urine Screen Not Detected Not Detect ng/mL [facility] Comment:Oxycodone cut-off is 100 ng/mL.Positive results are unconfirmed and should not be used fornon-medical purposes. Buprenorphine Screen Not Detected Not Detect ng/mL [facility] Comment:Buprenorphine cut-of f is 5 ng/mL.Positive results are unconfirmed and should not be used fornon-medical purposes. 07/26/2024 2:24 PM EDT 07/26/2024 2:28 PM EDT us Generic External Data Provider LAB URINE ORDERAB LES Final Result Performing Organization Address City/[facility]/ZIP Co de Phone Number [facility] [address] [place] [phone] * (ABNORMAL) Urinalysis Complete (07/26/2024 2:24 PM EDT) Color Urine Yellow [facility] Appearance Urine Clear [facility] PH 5.5 5.0 - 9.0 [facility] Glucose Urine UA Negative Negative mg/dL [facility] Urine Blood Trace(A) Negative [facility] Specific [place] - Urine 1.010 1.005 - 1.025 [facility] Urine Protein Negative Neg-Trace mg/dL [facility] Urine Ketones Trace Negative mg/dL [facility] Nitrite Urine Negative Negative [facility] Leukocyte Esterase Urine Negative Negative [facility] RBC Urine 0-2 0 - 2 /HPF [facility] Urine WBC 0-5 0 - 5 /HPF [facility] Urine Squamous Epithelial Cell 0-2 0 - 2 /HPF [facility] Urine Bacteria None Seen None Seen [facility] Hyaline Casts, Urine 0-2 0 - 2 /LPF [facility] 07/26/2024 2:24 PM EDT 07/26/2024 2:28 PM EDT Generic External Data Provider LAB URINE ORDERAB LES Final Result [facility] [address] [place] [phone] * Colonoscopy (04/11/2024 11:31 AM EST) Anatomical Region Laterality Modality Endoscopy Historical Provider ENDOSCOPY PROCEDURE ORDER HANS Final Result * POCT HGB A1C (02/01/2024 10:44 AM EST) Hemoglobin A1C 5.7 4.0 - 6.0 % QC Media Lot # [id number] Lot# Expiration Date [id number] Blood 02/01/2024 10:4 4 AM EST Anahi Richards MD POINT OF CARE TEST ENTER/ED IT ORDERABLES Final Result * HIV-1/2 Antigen and Antibodies, Fourth Generation, with Reflexes (12/17/2023 3:59 PM EST) Pathologist [facility] HIV AB/AG Nonreactive Nonreactive [facility] Comment:HIV-1 p24 Ag and/or HIV-1/HIV-2 Ab not detected.A test result that is nonreactive does not exclude thepossibility of exposure to or infection with HIV-1 and/orHIV-2. Nonreactive results in this assay for individualswith prior exposure to HIV-1 and/or HIV-2 may be due toantigen and antibody levels that are below the limit ofdetection of this assay.The [employer] HIV Ag/Ab Combo assay result andsupplemental assay results should be interpreted inconjunction with the patient's clinical presentation,history and other laboratory results. If the results areinconsistent with clinical evidence, additional testing issuggested to confirm the result. Blood Venous blood specimen / Unknown 12/17/2023 3:59 PM EST 12/17/2023 6:09 PM EST Anahi Richards MD LAB BLOOD ORDERABLES Final Result [facility] [address] [place] [phone] [phone] * (ABNORMAL) LIPID PANEL, STANDARD (11/28/2020 [...] factors. LDL-C is now calculated using the Charbel-Buck calculation, which is a validated novel method providing better accuracy than the Friedewald equation in the estimation of LDL-C. Charbel SS et al. KEISHA. 2013;310(19): 2643-5553 (http://education.[employer].com/faq/RIH942) Non-HDL Cholesterol 172(H) <130 mg/dL (calc) [facility] Comment: For patients with diabetes plus 1 major ASCVD risk factor, treating to a non-HDL-C goal of <100 mg/dL (LDL-C of <70 mg/dL) is considered a therapeutic option. Triglycerides 148 <150 mg/dL [facility] 11/28/2020 10:1 5 AM EDT us Brittany Serra MD LAB BLOOD ORDERABLES Final Resul t [facility] [address] from Last 3 Months or Most Recently Relevant to Health Maintenance [place] [address] [place] [address] Care Teams Child Care Attendant Relationship Specialty Start Date End Date Anahi Richards MD [address] [place] [phone] PCP - General Internal Medicine 03/10/13
--- NOTE | 2024-07-28 12:27 | PC.NURSE ---
Phone, belt, shoes, bank card, keys, one dollar, and work lanyard collected from pt and stored in fourth floor locker.
[2024-07-28] MEDS: Piperacillin Sodium/Tazobactam 3.375 GM in 0.9 % Sodium Chloride 50 ML IV ×3 (13:29→22:50)
[2024-07-28] MEDS: Enoxaparin Sodium 40 MG/0.4 ML SYRINGE SUBCUT (13:29)
[2024-07-28] MEDS: oxyCODONE HCl Immed Release 5 MG TABLET PO ×2 (13:35→20:20)
--- NOTE | 2024-07-28 14:10 | MHC.CLN ---
NUTRITION CONSULT FOR PATIENT REPORTED 20# WEIGHT LOSS. COMPARING WEIGHT 09/17/23=115.7 KG AND 07/28/24=114.6 KG, SHOWS WEIGHT ESSENTIALLY STABLE. NO ADDITIONAL NUTRITION INTERVENTIONS AT THIS TIME.
[2024-07-28 15:06] VITALS: BP 131/86; PULSE 64; RESP 18; TEMP 37.1; O2SAT 97
[2024-07-28] MEDS: Potassium Chloride ER 20 MEQ TAB.ER.PRT 40 MEQ PO (16:07)
[2024-07-28] MEDS: Acetaminophen 325 MG TABLET 650 MG PO (17:29)
[2024-07-28] MEDS: Morphine Sulfate 2 MG/ML CARTRIDGE IVPUSH (17:49)
[2024-07-28] MEDS: 0.9 % Sodium Chloride Flush 3 ML SYRINGE IVFLUSH ×2 (17:49→22:55)
--- NOTE | 2024-07-28 18:09 | PHA.MEDREC ---
Pharmacy Consult ? Medication Reconciliation Pharmacy has completed the medication reconciliation, used pt admission from [facility], home med was amlodipine, rest from medical record from psych admission.
[2024-07-28 18:23] LABS: CDiff Gene PCR NEGATIVE (Negative)
[2024-07-28 19:21] VITALS: BP 122/71; PULSE 70; RESP 18; TEMP 36.7; O2SAT 95
[2024-07-28] MEDS: OLANZapine 10 MG TABLET PO (20:20)
[2024-07-28] MEDS: 0.9 % Sodium Chloride 1,000 ML 100 ML IVCONT (20:21)
--- NOTE | 2024-07-29 00:04 | CONS_ITS ---
DATE OF SERVICE: 07/28/2024 REFERRING PHYSICIAN: Autumn Gregg NP REASON FOR CONSULTATION: Colitis and abdominal pain. HISTORY OF PRESENT ILLNESS: The patient is a pleasant 59-year-old man who was admitted though the inpatient psychiatric unit on July 27, for substance abuse and increased depression during his medical evaluation. Hospitalist consultation was obtained because of complaints of nausea and abdominal pain. He has had some diarrhea reportedly, but no rectal bleeding. Evaluation included imaging with a CT scanning of the abdomen and pelvis on 07/27, which is reviewed. This is interpreted as showing segmental colitis. Because of complaints of abdominal pain and diarrhea, he has been transferred to the medical service for treatment with intravenous antibiotics and further evaluation of his colitis. He denies any recent ill contacts, antibiotic usage or suspect food ingestions. He does have a prior history of sigmoid resection for diverticular disease and required anastomosis and loop ileostomy with reversal. He has also had incisional and umbilical hernia repairs. These were reportedly done in [place] at [facility]. He is unsure when his last colonoscopy was. PAST MEDICAL HISTORY: 1. Hypertension. 2. Gastroesophageal reflux disease. 3. Obstructive sleep apnea. 4. Elevated body mass index. 5. Diverticular disease as above. 6. History of C diff and H pylori and GI tract infections. 7. PTSD. 8. Alcohol use. 9. Cocaine use. CURRENT MEDICATIONS: Current medication list is reviewed in the chart. ALLERGIES: HYDROMORPHONE. FAMILY HISTORY: This is reviewed with the patient and is noncontributory. SOCIAL HISTORY: Substance use is as above. REVIEW OF SYSTEMS: SKIN: No pruritus. HEENT: Negative. CARDIOPULMONARY: He denies shortness of breath or chest pain. GASTROINTESTINAL: As above. GENITOURINARY: Negative. NEUROPSYCHIATRIC: Negative. PHYSICAL EXAMINATION: GENERAL: Shows a pleasant male, lying comfortably in bed. VITAL SIGNS: Reviewed in electronic medical record and are stable. SKIN: Anicteric. HEENT: Shows no scleral icterus. NECK: Without lymphadenopathy or thyromegaly. LUNGS: Clear. HEART: Shows a regular rate and rhythm. S1, S2. No murmur. ABDOMEN: Soft without focal masses or tenderness. Bowel sounds are present. No organomegaly is noted. EXTREMITIES: Without edema. LABORATORY DATA: Reviewed. IMAGING STUDIES: Reviewed. IMPRESSION: Colitis. We discussed the differential diagnosis for this today. This includes infectious colitis, ischemic colitis, and colitis related to inflammatory bowel disease, which seems very unlikely and at this time, I recommend obtaining stool studies for GI panel, ova and parasites, fecal leukocytes, and agree with antibiotics. If his stool studies are negative, antibiotics can be discontinued. If he has persistent symptoms, he may need further evaluation with lower GI tract endoscopy. If he has worsening abdominal pain, I would obtain a followup CT scan. Thanks for asking me to see him. I will follow him in the hospital with you. MD PRAVIN Huertas/ZACHERY / [id number]
[2024-07-29 04:00] VITALS: BP 131/75; PULSE 67; RESP 18; TEMP 36.5; O2SAT 96
[2024-07-29] MEDS: Piperacillin Sodium/Tazobactam 3.375 GM in 0.9 % Sodium Chloride 50 ML IV ×4 (04:42→21:52)
[2024-07-29] MEDS: oxyCODONE HCl Immed Release 5 MG TABLET PO ×3 (04:46→18:31)
[2024-07-29 06:12] LABS: MANUAL DIFF FLAG NO
[2024-07-29 06:17] LABS: Basophils Percent Auto 0.2 % (0-2); Eosinophils Absolute Auto 0.1 X10*3/uL (0.0-0.4); Eosinophils Percent Auto 2.3 % (0-4); Hematocrit 41.5 % (42.0-52.0); Hemoglobin 14.6 g/dl (14.0-18.0); Imm Gran Abs Auto 0.02 X10*3/uL (0.00-0.03); Imm Gran Pct Auto 0.4 % (0.0-0.4); Lymphocytes Absolute Auto 1.3 X10*3/uL (1.2-4.9); Mean Corpuscular HGB Conc 35.2 g/dl (31.0-36.0); Mean Corpuscular Hemoglobin 31.7 pg (27.0-33.0); Monocytes Absolute Auto 0.6 X10*3/uL (0.1-1.2); Monocytes Percent Auto 11.2 % (2-11); Neutrophils Absolute Auto 3.6 x10*3/uL (2.0-8.3); Neutrophils Percent Auto 63.9 % (45-73); Platelet Count 134 X10*3/uL (160-400); Red Blood Count 4.61 X10*6/uL (4.60-5.80); Red Cell Distribution Width 12.4 % (11.0-16.0); White Blood Count 5.7 X10*3/uL (4.8-10.8)
[2024-07-29] MEDS: Omeprazole 40 MG CAPSULE.DR PO (06:17)
[2024-07-29 06:32] LABS: Alanine Aminotransferase 38 U/L (0-40); Albumin Level 3.8 g/dL (3.5-5.0); Alkaline Phosphatase 57 U/L (39-117); Anion Gap 13 (12-20); Aspartate Amino Transferase 55 U/L (5-37); Bilirubin Total 2.1 mg/dL (0.0-1.0); Blood Urea Nitrogen 5 mg/dL (9-16); Calcium 8.5 mg/dL (8.4-10.2); Carbon Dioxide 25 mmol/L (22-29); Chloride 106 mmol/L (96-108); Creatinine Clr Calc Pharmacy 129.9; Estimated Glomerular Filt Rate > 60; Glucose Random 88 mg/dL (60-115); Potassium 3.3 mmol/L (3.3-5.1); Sodium 141 mmol/L (135-145); Total Protein 6.8 g/dL (6.5-8.0)
[2024-07-29 08:00] VITALS: BP 124/85; PULSE 53; RESP 16; TEMP 36.9; O2SAT 94
--- NOTE | 2024-07-29 10:22 | P.PNIM_ITS ---
Subjective Subjective Date of Service: 07/29/24 Review of Systems Denies any shortness of breath, chest pain, dizziness, lightheadedness, + abdominal pain, + nausea, No vomiting or diarrhea. Denies constipation or reflux Physical Exam 2 Vital Signs: Vital Signs: Last Vital Signs Temp 98.4 F 07/29/24 08:00 Pulse 53 07/29/24 08:00 Resp 16 07/29/24 08:00 BP 124/85 07/29/24 08:00 Pulse Ox 94 07/29/24 08:00 O2 Del Method Room Air 07/29/24 08:00 BMI result Body Mass Index 39.6 Objective Data Active Medications Acetaminophen (Acetaminophen 325 Mg Tablet) 650 mg PO Q6H PRN PRN Reason: Pain, Mild 1-3,fever,headache Last Admin: 07/28/24 17:29 Dose: 650 mg Documented By: CHRISTINE Calcium Carbonate (Calcium Carbonate 750 Mg Tab.Chew) 750 mg PO Q4H PRN PRN Reason: Heartburn Enoxaparin Sodium (Enoxaparin Sodium 40 Mg/0.4 Ml Syringe) 40 mg SUBCUT Q24H [facility] Last Admin: 07/28/24 13:29 Dose: 40 mg Documented By: CHRISTINE Sodium Chloride (Ns) 1,000 mls @ 100 mls/hr IVCONT .Q10H [facility] Last Infusion: 07/29/24 08:09 Dose: Infused Documented By: ISRAEL Piperacillin Sod/Tazobactam (Sod 3.375 gm/ Sodium Chloride) 50 mls @ 100 mls/hr IV Q6H [facility] Last Infusion: 07/29/24 05:18 Dose: Infused Documented By: YORDY Lorazepam (Lorazepam 1 Mg Tablet) 1 mg PO Q2H PRN PRN Reason: CIWA 8-11 Lorazepam (Lorazepam 1 Mg Tablet) 2 mg PO Q2H PRN PRN Reason: CIWA 12-15 Lorazepam (Lorazepam 1 Mg Tablet) 3 mg PO Q2H PRN PRN Reason: CIWA > 15, and call Magnesium Hydroxide (Milk Of Magnesia 30 Ml Oral.Susp) 30 ml PO DAILY PRN PRN Reason: Constipation Melatonin (Melatonin 3 Mg Tablet) 6 mg PO BEDTIME PRN PRN Reason: Insomnia Morphine Sulfate (Morphine Sulfate 2 Mg/Ml Cartridge) 2 mg IVPUSH Q6H PRN; Protocol PRN Reason: Pain, Severe (Pain Scale 7-10) Last Admin: 07/28/24 17:49 Dose: 2 mg Documented By: SONIA Olanzapine (Olanzapine 10 Mg Tablet) 10 mg PO BEDTIME [facility] Last Admin: 07/28/24 20:20 Dose: 10 mg Documented By: YORDY Omeprazole (Omeprazole 40 Mg Capsule.Dr) 40 mg PO DAILY@0630 [facility] Last Admin: 07/29/24 06:17 Dose: 40 mg Documented By: YORDY Ondansetron HCl (Ondansetron Hcl 4 Mg/2 Ml Vial) 4 mg IVPUSH Q8H PRN PRN Reason: Nausea and Vomiting Oxycodone HCl (Oxycodone Hcl Immed Release 5 Mg Tablet) 5 mg PO Q6H PRN PRN Reason: Pain, Moderate(Pain Scale 4-6) Last Admin: 07/29/24 04:46 Dose: 5 mg Documented By: YORDY Sodium Chloride (0.9 % Sodium Chloride Flush 3 Ml Syringe) [facility] Last Admin: 07/28/24 22:55 Dose: 3 ml Documented By: YORDY Labs 07/29/24 05:43 07/29/24 05:43 Labs: Laboratory Results - last 24 hr 07/28/24 07/29/24 17:01 05:43 MCV 90.0 MCH 31.7 MCHC 35.2 RDW 12.4 Plt Count 134 L MPV 10.0 Immature Gran % (Auto) 0.4 Neut % (Auto) 63.9 Lymph % (Auto) 22.0 Crook % (Auto) 11.2 H Eos % (Auto) 2.3 Baso % (Auto) 0.2 Lymph # (Auto) 1.3 Crook # (Auto) 0.6 Eos # (Auto) 0.1 Baso # (Auto) 0.0 Abs Immat Gran (auto) 0.02 Absolute Neuts (auto) 3.6 Absolute Nucleated RBC 0.000 Nucleated RBC % (auto) 0.0 Anion Gap 13 Estim Creat Clear Calc 129.9 Estimated GFR > 60 Random Glucose 88 Calcium 8.5 Total Bilirubin 2.1 H AST 55 H ALT 38 Alkaline Phosphatase 57 Total Protein 6.8 Albumin 3.8 C. difficile Tox B Gene NEGATIVE Assessment and Plan (1) Abdominal pain: Status: Acute (2) Colitis: Status: Acute Plan 59-year-old male with past medical history of hypertension, GERD, BIA, obesity, history of diverticulitis, status post ileostomy with reversal, history of C diff and H pylori, major depressive disorder, PTSD, EtOH and cocaine use disorder was originally admitted to psych psychiatric inpatient treatment when he developed severe abdominal pain. He is now being transferred to the floor for treatment of colitis. Colitis/Abdominal pain. Abdominal CAT scan revealed wall thickening of the hepatic flexure, transverse colon, splenic flexure, and descending colon consistent with segmental colon Received a dose of Levaquin p.o. day prior, continue with Zosyn Patient has a history of C diff, reporting loose stools this morning. Will check Stool for CDIFF and stool studies if diarrhea persists GI consulted Patient with a history of alcohol misuse. -On CIWA scale. Not scoring. No evidence of withdrawal. Follow labs, continue IV fluids Continue Omeprazole. HTN Continue Amlodipine. Depression/mood disorder, denies SI/HI, has sitter CODE Status: FULL CODE VTE Prophylaxis: LOvenox Quality Stroke Does the patient have a stroke diagnosis?: No VTE Prior VTE?: No VTE Risk Level:: Medical - moderate - high VTE Device Contraindication: Treatment Not Indicated VTE Drug Contraindication: N/A - Med Ordered
[2024-07-29] MEDS: Enoxaparin Sodium 40 MG/0.4 ML SYRINGE SUBCUT (10:23)
[2024-07-29] MEDS: Morphine Sulfate 2 MG/ML CARTRIDGE IVPUSH (10:36)
[2024-07-29 10:54] VITALS: BP 138/85; PULSE 57
[2024-07-29] MEDS: amLODIPine Besylate 10 MG TABLET PO (11:19)
[2024-07-29] MEDS: Thiamine HCL 100 MG TABLET PO (11:19)
--- NOTE | 2024-07-29 11:37 | P.PNGI_ITS ---
Subjective Subjective Date of Service: 07/29/24 Interval History: feels better Critical Care Time (minutes): 0 Physical Exam 2 Vital Signs: Vital Signs: Last Vital Signs Temp 98.4 F 07/29/24 08:00 Pulse 57 07/29/24 10:54 Resp 16 07/29/24 08:00 BP 138/85 07/29/24 10:54 Pulse Ox 94 07/29/24 08:00 O2 Del Method Room Air 07/29/24 08:00 BMI result Body Mass Index 39.6 GI: Other: abdomen is soft and nontender Objective Data Labs 07/29/24 05:43 07/29/24 05:43 Procedures Date of Service Date of Service: 07/29/24 Progress Note: A&P Assessment and plan (1) Colitis: Status: Acute Assessment and Plan: doing well stool testing reviewed, awaiting results continue present treatment. Time Spent With Patient Time: Total time managing care of this patient today ____ minutes. Quality Stroke Does the patient have a stroke diagnosis?: No VTE Prior VTE?: No VTE Risk Level:: Medical - moderate - high VTE Device Contraindication: Treatment Not Indicated VTE Drug Contraindication: N/A - Med Ordered
[2024-07-29 15:18] VITALS: BP 140/85; PULSE 65; RESP 16; TEMP 36.8; O2SAT 96
[2024-07-29] MEDS: 0.9 % Sodium Chloride Flush 3 ML SYRINGE IVFLUSH ×2 (15:46→21:54)
--- NOTE | 2024-07-29 16:00 | MHC.CM.PN ---
PT REPORTS HE WAS STAYING WITH A FRIEND [employer], BUT LEARNED HIS FRIEND WAS BEING EVICTED HE REPORTS HE WAS PAYING HIM $900/MONTH, BUT HIS FRIEND WAS NOT GIVING IT TO THE [place] HE REPORTS THIS IS PART OF WHAT SENT HIM TO CRISIS HE SAYS HE WILL NOT BE RETURNING THERE AND IS CURRENTLY UNSURE WHERE HE WILL GO [place] HE SAYS HE HAS NOT DRANK IN SEVERAL DAYS AND WOULD LIKE TO CONTINUE TO [place], HE MAY BE INTERESTED IN A TREATMENT PROGRAM FROM HERE, BUT ALSO STATES HE HAS A JOB HE NEEDS TO RETURN TO. HE REPORTS HE HAS A HCP NAMING HIS SISTER, KAM, HIS AGENT, COPY REQUESTED PCP: ANNALISA ADLER [facility]SP TBD: TREATMENT PROGRAM VIA RECOVERY TEAM VS RETURN TO THE COMMUNITY PT CURRENTLY DOES NOT FEEL HE WILL NEED TO RETURN TO [facility], HOWEVER UNDERSTANDS HE WILL LIKELY HAVE A CARE TEAM EVAL TO CONFIRM IF PT DISCHARGES TO THE COMMUNITY, HE WILL NEED ASSISTANCE GETTING TO HIS CAR WHICH IS PARKED AT [facility]
[2024-07-29 19:40] VITALS: BP 136/73; PULSE 67; RESP 18; TEMP 37.1; O2SAT 95
--- NOTE | 2024-07-29 20:11 | MHC.CARE ---
CARE Team evaluated Pt to determine if Pt required additional inpatient psychiatric treatment, as Pt transferred from to the medical unit on 07/28/24. Pt does not currently meet criteria for inpatient level of care and declined all services offered by T/W. Pt was agreeable to receive information regarding community crisis (CHD/BHN), MAT, and recovery resources if he should be interested in the future. Pt engaged in safety planning and agreed to present to an ED if he should find himself struggling with SI/HI/AVH/engaging in unsafe behavior after discharge. Case was discussed with attending RN and provider Parth Duong.
[2024-07-29] MEDS: OLANZapine 10 MG TABLET PO (20:17)
[2024-07-30] MEDS: Morphine Sulfate 2 MG/ML CARTRIDGE IVPUSH (03:18)
[2024-07-30 04:00] VITALS: BP 120/70; PULSE 65; RESP 18; TEMP 36.7; O2SAT 97
[2024-07-30] MEDS: Piperacillin Sodium/Tazobactam 3.375 GM in 0.9 % Sodium Chloride 50 ML IV (05:05)
[2024-07-30] MEDS: Omeprazole 40 MG CAPSULE.DR PO (05:40)
--- NOTE | 2024-07-30 06:57 | PC.NURSE ---
D/C Sitter per Care Team and MD. Plan to d/c.
[2024-07-30 08:00] VITALS: BP 130/85; PULSE 68; RESP 18; TEMP 36.7; O2SAT 95
[2024-07-30] MEDS: Amoxicillin/Potassium Clav 875 MG TABLET PO (08:36)
[2024-07-30] MEDS: 0.9 % Sodium Chloride Flush 3 ML SYRINGE IVFLUSH (08:36)
[2024-07-30] MEDS: Thiamine HCL 100 MG TABLET PO (08:36)
[2024-07-30] MEDS: amLODIPine Besylate 10 MG TABLET PO (08:36)
--- NOTE | 2024-07-30 10:41 | PM.DS ---
DS: Providers Provider Date of Service: 07/30/24 Date of admission: 07/28/24 12:11 Date of discharge: 07/30/24 Primary care physician: Unknown Physician Consults: 07/29/24 16:59 Inpt CARE Team Crisis Consult Routine Comment: Reason for consultation: medically ready for dc 07/30/24 07:54 Consult to Psychiatry Routine Consulting Provider: [facility] [place] [facility] Reason for consultation: depression, SI, med management, was transferr from Psych DS: Diagnosis Discharge Diagnosis (1) Colitis: Status: Acute DS: Summary Hospital Course Hospital Course: admission hpi Chief Complaint: Abdominal pain, colitis 59-year-old male with a past medical history of hypertension, GERD, BAI, obesity, history of diverticulitis, history of CDIFF, history of H pylori infection. Major depressive disorder, PTSD, alcohol use disorder, and cocaine use disorder, presented to the ED reporting suicidal and homicidal ideation secondary to increased depression and substance use. He was admitted for treatment to inpatient psychiatric and developed abdominal pain. He is now transferred to the medical floor for further evaluation. Patient has a history of a laparoscopic sigmoid resection with colorectal anastomosis and loop ileostomy in 2018 secondary to diverticulitis. He subsequently had a reversal in January of 2020. Patient has also undergone laparoscopic repair of incisional and recurrent umbilical hernias in May of 2022. He was hospitalized in January of 2023 with septic arthritis, subsequently discharged on IV antibiotics and was in a rehab until May. Patient has a history of EtOH use, drinking 6-10 beers a day since age 12. Patient has been followed on psychiatric unit with a CIWA scale, has not been scoring. Patient was seen yesterday in the inpatient psych floor with reports of abdominal pain. He had diffuse abdominal pain with guarding, he underwent a CAT scan which demonstrated wall thickening of the hepatic flexure, transverse colon, splenic flexure and descending colon, consistent with segmental colitis. Patient was given a dose of Levaquin 750, a L of IV fluids, a dose of oxycodone, reported that he was feeling better in the afternoon. This morning upon examination patient continued to complain of abdominal pain, reports diarrhea, and nausea. No vomiting reported. No fever, no leukocytosis on labs. ALT/AST stable, Lipase WNL. Total Bili 2.2, slight increase from yesterday, Upon review of [facility] records patient has had an elevated total bilirubin in the past. Patient will be discharged to the [facility] surge floor for further evaluation of abdominal pain. GI has been consulted. Patient to start Zosyn, continue IV fluids. Hospital course: A 59-year-old male with a history of hypertension, GERD, BIA, obesity, diverticulitis (status post ileostomy with reversal), C. diff, H. pylori, major depressive disorder, PTSD, and alcohol/cocaine use disorder was initially admitted to inpatient psychiatric care for depression and suicidal ideation. He developed severe abdominal pain, and a CT scan revealed colitis. Initially treated with oral Levaquin, he continued to experience pain and was transferred to the medical floor for IV antibiotics (Zosyn). He showed rapid improvement, with pain and diarrhea fully resolved. He is now tolerating a regular diet, and stool studies were not needed. GI consultation determined no procedures are necessary. He will be discharged with a 5-day course of oral Augmentin. As for depression, initially had a sitter, he no longer endorsing SI, was seen by crisis team and there is no indication for inpatient care. Psyhiatry has reviewed his medication recommends continuing with Zyprexa 10 mg at bed time and 5 mg PRN, Trazadone at night Patient with a history of alcohol misuse, was on CIWA and did not exhibit signs of withdrawal, Cessation discussed and to follow through outpatient resources Continue Omeprazole. HTN Continue Amlodipine. Time Attestation Discharge Coordination Time (in mins): 45 Quality: Safe Use of Opioids Does Pt have an Active Cancer Diagnosis on the Problem List?: No Quality: Stroke Does the patient have a stroke diagnosis?: No Physical Exam Vital Signs: Vital Signs: Last Vital Signs Temp 98.0 F 07/30/24 08:00 Pulse 68 07/30/24 08:00 Resp 18 07/30/24 08:00 BP 130/85 07/30/24 08:00 Pulse Ox 95 07/30/24 08:00 O2 Del Method Room Air 07/30/24 08:00 BMI result Body Mass Index 39.6 DS: Data Data Completed and Pending Labs on day of discharge: Laboratory Results - last 24 hr 07/28/24 17:01 Stl C. cayetanensis PCR Cancelled Stool Rotavirus A PCR Cancelled Stl Adenov F 40/41 PCR Cancelled Stool Astrovirus (PCR) Cancelled Stool Campylobacter PCR Cancelled Stool Cryptosporidium PCR Cancelled Stl Sh Tox Pr E STEC PCR Cancelled Stool E coli O157 PCR Cancelled Stl Enterotoxigenic E PCR Cancelled Stool EPEC (PCR) Cancelled Stool EAEC (PCR) Cancelled Stl E. histolytica PCR Cancelled Stool Giardia Lamblia PCR Cancelled Stl P. shigelloides PCR Cancelled Stool Salmonella PCR Cancelled Stool Sapovirus (PCR) Cancelled Stl Shigella/EIEC PCR Cancelled St Y.enterocolitica PCR Cancelled Stool Vibrio (PCR) Cancelled Stl Vibrio cholerae PCR Cancelled Stl Norovirus GI/GII PCR Cancelled Discharge Plan Discharge Anticipated Discharge Date/Time: 07/30/24 10:39 Patient Disposition: Home, Self-Care Discharge Diagnosis: Colitis Referrals: Physician,Unknown J [Primary Care Provider, Medical] - 1 Week Discharge Medications: New amoxicillin-pot clavulanate 875-125 mg Tablet 1 tab PO BID Qty: 10 0RF Continued amlodipine 10 mg tablet 10 mg PO DAILY trazodone 50 mg Tablet 50 mg PO BEDTIME MRX1 PRN (Reason: Insomnia) Qty: 0 0RF olanzapine 5 mg Tablet 5 mg PO Q4H PRN (Reason: agitation) Qty: 0 0RF olanzapine 10 mg Tablet 10 mg PO BEDTIME Qty: 0 0RF omeprazole 40 mg Capsule,Delayed Release(Dr/Ec) 40 mg PO DAILY@0630 Qty: 0 0RF hydroxyzine HCl 25 mg Tablet 25 mg PO Q6H PRN (Reason: mild anxiety) Qty: 0 0RF ondansetron 4 mg Tablet,Disintegrating 4 mg translingual Q8H PRN (Reason: Nausea And Vomiting) Qty: 0 0RF thiamine mononitrate (vit B1) 100 mg Tablet 100 mg PO DAILY Qty: 0 0RF Discontinued levofloxacin 750 mg Tablet 750 mg PO Q24H Qty: 0 0RF Discharge Orders: Discharge Order (Routine); Ordered 07/30/24 Ordered By: Parth Duong Diet: Advance to usual diet Activity on Discharge: As tolerated Stand Alone Forms: Patient Portal Discharge page Print Language: Slovenian Care Plan Goals: recovery from Colitis Health Concerns: colitis depression Plan of Treatment: Take Augmentin as recommended and follow up with your doctor in a week Assessment: see above
[2024-07-30 13:02] VITALS: BP 140/85; PULSE 88; RESP 18; TEMP 36.9; O2SAT 96
--- NOTE | 2024-07-30 13:29 | MHC.CM.PN ---
PT CLEARED TO DC TODAY, ALSO CLEARED BY CARE TEAM HE REPORTS HE WOULD LIKE TO DC BACK TO HIS CAR AT [facility] SO HE CAN RETURN TO WORK TOMORROW L[facility]FT TRAN[facility]ORT ARRANGED TO [facility]
== END 2024-07-30 13:04 | disposition home or self-care (01) | DRG 249 ==
PROVIDERS: Admitting Provider Nurse Practitioner Family; PCP Internal Medicine; Visit Provider Internal Medicine
DX: K52.9 Noninfective gastroenteritis and colitis, unspecified (principal); R45.851 Suicidal ideations; F32.A Depression, unspecified; F10.90 Alcohol use, unspecified, uncomplicated; I10 Essential (primary) hypertension; Z79.899 Other long term (current) drug therapy
CPT/HCPCS: 36415; 80053; 85025; 87493; 87507; 99221; J1650; J2270; J2543; S9485

== ENCOUNTER → 2024-07-28 | Outpatient (BNV) | payer OTHER, SELFPAY | PROVIDERS: Admitting Provider Nurse Practitioner Family; Visit Provider Nurse Practitioner Family | DX: R10.84 Generalized abdominal pain (principal); K52.9 Noninfective gastroenteritis and colitis, unspecified | CPT/HCPCS: 99222; 99232 ==